=== PATIENT | male | born 1975 | race Caucasian/White ===

== ENCOUNTER 2016-11-23 13:09 | Emergency (ER) | payer SELFPAY ==
[~2016-11-23] VITALS: Ht 180.3 cm; Wt 122.5 kg
[~2016-11-23 13:09] MED LIST: ALPR.5T PO; ALPR2TAB2 PO; AML5T PO; AMLO10TA2 PO; AMLO10TA82 PO; AMLO5TAB2 PO; AMLODIPINE; ATEN-147 PO; ATEN100T PO; ATEN25TA PO; BENA20TA2 PO; BENAZAPRIL; BNZ10T PO; BNZ20T PO; BNZ40T PO; CHLO-159 PO; CHLO4TAB PO; CHLO4TAB36 PO; CHLO500T2 PO; CLC500CT PO; DOXY100C2 PO; FAMO20TA5 PO; GBPN100C PO; GLIP5TAB13 PO; HYDR-3454 PO; HYDR-3583 PO; HYDR-3812 PO; IBP800T PO; IBUP-30 PO; INSU100V SQ; INSU100V6 SQ; LACT1CAP45 PO; METF-380 PO; METOPROLOL; MTP50T PO; MTR500T PO; ONDA8TAB9 PO; OXYC-471 PO; POTA10TA36 PO; PRD10T PO; PRD20T PO; PRED10TA PO; RANI150T15 PO; RANI75TA30 PO; SMV20T PO; TRAM50TA2 PO; TRM50T PO; VANC125C4 PO
--- OUTSIDE RECORDS SUMMARY | 2016-11-23 13:18 | XMS REPORT | Continuity of Care Document ---
Author Author [facility] Organization [facility] Address Unknown Phone Unavailable Care Team Providers Care Referral And Information Aide Name Role Phone PCP Unavailable Source Comments Some departments are not documenting in the electronic medical record. If you do not see the information that you expected, contact Release of Information in the Health Information Management department at [phone] for further assistance in locating additional records.[facility] Active Allergies and Adverse Reactions Allergen Noted Date Severity Reactions Comments Iv Contrast Dye, Iodine 08/01/2016 Medium HIVES Containing Current Medications Prescription Sig. Disp. Refills Start End Date Status Date insulin lispro(+) Inject 23 Units under the Active (HUMALOG KWIKPEN) 100 skin three times daily unit/mL injection PEN with meals. insulin glargine (LANTUS Inject 45 Units under the Active SOLOSTAR) 100 unit/mL (3 skin at bedtime daily. mL) injection PEN benazepril (LOTENSIN) 40 Take 40 mg by mouth Active mg tablet daily. amLODIPine (NORVASC) 10 Take 10 mg by mouth Active mg tablet daily. chlorzoxazone(+) (PARAFON Take 500 mg by mouth Active FORTE) 500 mg tablet three times daily as needed for Muscle Cramps. atenolol (TENORMIN) 100 Take 100 mg by mouth Active mg tablet daily. ondansetron hcl (ZOFRAN) Take 8 mg by mouth every Active 8 mg tablet 8 hours as needed for Nausea or Vomiting. sulfaSALAzine (SULFAZINE 1 tab twice daily for 1 120 Tab 1 08/26/20 Active EC) 500 mg EC tablet week, 2 tabs in the AM 16 and 1 tab in the PM for 1 wk, then 2 tabs twice daily thereafter. Take with food. Active Problems No known active problems Most Recent Encounters Date Type Specialty Providers Description 08/24/2016 Orders Only Allergy,Immunology and El Adame MD Polyarthralgia; Rheumatology Inflammatory arthropathy; Nail dystrophy 08/24/2016 Orders Only Allergy,Immunology and El Adame MD Polyarthralgia; Rheumatology Inflammatory arthropathy; Nail dystrophy Social History Tobacco Use Types Packs/Day Years Used Date Never Smoker Smokeless Tobacco: Never Used Alcohol Use Drinks/Week oz/Week Comments No Last Filed Vital Signs Vital Sign Reading Time Taken Blood Pressure 129/83 08/08/2016 8:19 AM CDT Pulse 78 08/08/2016 8:19 AM CDT Temperature 36.9 C (98.4 F) 08/08/2016 8:19 AM CDT Respiratory Rate 20 08/08/2016 8:19 AM CDT Height 1.803 m (5' 11") 08/08/2016 8:19 AM CDT Weight 127.189 kg (280 lb 6.4 08/08/2016 8:19 AM CDT oz) Body Mass Index 39.13 08/08/2016 8:19 AM CDT Oxygen Saturation - - Plan of Care Health Maintenance Due Date Last Done Comments Physical (Comprehensive) 1981 Exam Pertussis Vaccine 1985 Tetanus Vaccine 1991 Influenza Vaccine 06/16/2016 Results from Last 3 Months Not on file
[2016-11-23] MEDS ORDERED: SULF500T7 PO (13:30)
--- NOTE | 2016-11-23 13:35 | ED General ---
General Chief Complaint: General Problems/Pain Stated Complaint: SWELLING, HIP/KNEE PAIN Nursing Triage Note: PT CO OF JOINT SWELLING AND TENDERNESS, PT CO OF HAND, HIPS AND KNEES BEING SWOLLEN AND PAINFUL. STARTED THIS AM Nursing Sepsis Screen: No Definite Risk Source of Information: Patient Exam Limitations: No Limitations History of Present Illness Time Seen by Provider: 13:35 Initial Comments 41 yo male patient presents to the ED with c/o swelling and pain of the back, hips, knees, shoulders, elbows, and hands. Patient states he has seen a emergency department rn and they think he has RA. Denies fever, chills, sweats, headache , dizziness, n/v/d, chest pain, SOB. Timing/Duration: 4-6 Hours, Getting Worse Modifying Factors: worse with Movement, worse with Other (worse with palpation) Allergies and Home Medications Allergies Coded Allergies: Iodinated Contrast Media - IV Dye (Unverified Allergy, Unknown, 05/12/14) Home Medications Amlodipine Besylate 10 Mg Tablet 10 MG PO HS (Reported) LAST FILLED 12/26/15 #30 Atenolol 100 Mg Tablet 100 MG PO BID (Reported) LAST FILLED 12/24/15 #60 Benazepril HCl 40 Mg Tab 40 MG PO HS (Reported) LAST FILLED 12/24/15 #30 Hydrocodone/Acetaminophen 1 Each Tablet #14 1 EACH PO Q4H PRN PRN PAIN Prescribed by: LISA REINA on 11/23/16 1638 Insulin Glargine,Hum.rec.anlog 100 Unit/1 Ml Vial 45 UNIT SQ DAILY (Reported) LAST FILLED 11/05/15 #1 VIAL Insulin Lispro 100 Unit/1 Ml Vial 23 UNITS SQ TIDWM (Reported) LAST FILLED 11/19/15 #1 VIAL Meloxicam 7.5 Mg Tablet #20 7.5 MG PO BID Prescribed by: LISA REINA on 11/23/16 1626 Ondansetron 8 Mg Tab.rapdis 8 MG PO TID PRN PRN NAUSEA/VOMITING (Reported) Prednisone 20 Mg Tab #5 20 MG PO DAILY Prescribed by: LISA REINA on 11/23/16 1638 Sulfasalazine 500 Mg Tablet 500 MG PO BID (Reported) Constitutional: No chills, No diaphoresis, No dizziness, No fever, No malaise EENTM: no symptoms reported Respiratory: no symptoms reported Cardiovascular: no symptoms reported Gastrointestinal: no symptoms reported Genitourinary: no symptoms reported Musculoskeletal: see HPI Skin: no symptoms reported Psychiatric/Neurological: No Symptoms Reported All Other Systems Reviewed Negative Unless Noted: Yes (Negative excepted noted.) Past Ibgebyu-Vjzpnf-Xnlady Hx Patient Social History Alcohol Use: Denies Use Recreational Drug Use: No Smoking Status: Never a Smoker Former Smoker/When Quit: Oct 16, 1988 Recent Foreign Travel: No Contact w/Someone Who Travel: No Recent Infectious Disease Expo: No Recent Hopitalizations: No Immunizations Up To Date Tetanus Booster (TDap): Unknown Date of Pneumonia Vaccine: Jul 16, 2015 Date of Influenza Vaccine: Jul 16, 2016 Surgeries HX Surgeries: Yes (laminectomy, MRSA CYST REMOVAL) Surgeries: Orthopedic Respiratory Hx Respiratory Disorders: No Cardiovascular Hx Cardiac Disorders: Yes (IMPLANTABLE LOOP RECORDER) Cardiac Disorders: Hypertension, Irregular Heartbeat Neurological Hx Neurological Disorders: No Reproductive System Hx Reproductive Disorders: No Sexually Transmitted Disease: No HIV/AIDS: No Genitourinary Hx Genitourinary Disorders: Yes Genitourinary Disorders: Kidney Stones Gastrointestinal Hx Gastrointestinal Disorders: Yes Gastrointestinal Disorders: Pancreatitis, C-Diff Musculoskeletal Hx Musculoskeletal Disorders: Yes ( right humerus fracture) Musculoskeletal Disorders: Arthritis, Fractures, Gout Endocrine Hx Endocrine Disorders: Yes Endocrine Disorders: Diabetes, Insulin dep HEENT HX ENT Disorders: No Loss of Vision: Denies Hearing Impairment: Denies Cancer Hx Cancer: No Psychosocial Hx Psychiatric Problems: No Integumentary HX Skin/Integumentary Disorder: Yes (hx MRSA OF A WOUND) Blood Transfusions Hx Blood Disorders: No Adverse Reaction to a Blood Tr: No Reviewed Nursing Assessment Reviewed/Agree w Nursing PMH: Yes Family Medical History Significant Family History: Heart Disease, Diabetes, Hypertension Family Medial History: Family history: Diabetes mellitus 19 FATHER Family history: Hypertension 19 FATHER Hypercholesterolemia 19 FATHER Myocardial infarction 19 MOTHER No Family History of: Cancer Cancer of colon Dementia Family history: Alzheimer's disease Family history: Asthma History of - respiratory disease Seizure disorder Stroke Physical Exam Vital Signs Vital Sign - Last 12Hours 11/23/16 13:19 Temp 98.1 Pulse 104 Resp 18 B/P 148/98 Pulse Ox 95 O2 Delivery Room Air Capillary Refill : Less Than 3 Seconds General Appearance: No Apparent Distress WD/WN Respiratory: Lungs Clear Normal Breath Sounds No Respiratory Distress Cardiovascular: Regular Rate, Rhythm No Edema No Murmur Normal Peripheral Pulses Gastrointestinal: Normal Bowel Sounds No Organomegaly Non Tender SoftNo Distended Back: Normal Inspection Decreased Range of Motion Extremity: Normal Capillary Refill No Calf Tenderness No Pedal Edema Swelling (bilateral hands) Other (tenderness palpation of the shoulders, elbows, hands, hips, and knees. Decreased range of motion in all joints.) Neurologic/Psychiatric: Alert Oriented x3 No Motor/Sensory Deficits Normal Mood/Affect correctional lieutenant II-XII Norm as Tested Skin: Normal Color Warm/Dry Progress/Results/Core Measures Results/Orders Lab Results Laboratory Tests Test 11/23/16 14:51 11/23/16 16:19 Range/Units Alanine Aminotransferase (ALT/SGPT) 21 0-55 U/L Albumin 3.8 3.2-4.5 G/DL Alkaline Phosphatase 115 40-136 U/L Anion Gap 11 5-14 MMOL/L Aspartate Amino Transf (AST/SGOT) 14 5-34 U/L BUN/Creatinine Ratio 7 Basophils # (Auto) 0.0 0.0-0.1 10^3/uL Basophils (%) (Auto) 0 0-10 % Blood Urea Nitrogen 10 7-18 MG/DL C-Reactive Protein High Sensitivity 7.09 H 0.00-0.50 MG/DL Calcium Level 8.9 8.5-10.1 MG/DL Carbon Dioxide Level 22 21-32 MMOL/L Chloride Level 103 98-107 MMOL/L Creatinine 1.34 H 0.60-1.30 MG/DL Eosinophils # (Auto) 0.1 0.0-0.3 10^3/uL Eosinophils (%) (Auto) 1 0-10 % Erythrocyte Sedimentation Rate 57 H 0-15 MM/HR Estimat Glomerular Filtration Rate 58 Glucose Level 260 H 70-105 MG/DL Hematocrit 36 L 40-54 % Hemoglobin 12.4 L 13.3-17.7 G/DL Lymphocytes # (Auto) 1.8 1.0-4.0 X 10^3 Lymphocytes (%) (Auto) 17 12-44 % Mean Corpuscular Hemoglobin 30 25-34 PG Mean Corpuscular Hemoglobin Concent 35 32-36 G/DL Mean Corpuscular Volume 86 80-99 FL Mean Platelet Volume 8.5 7.4-10.4 FL Monocytes # (Auto) 1.1 H 0.0-1.0 X 10^3 Monocytes (%) (Auto) 11 0-12 % Neutrophils # (Auto) 7.4 1.8-7.8 X 10^3 Neutrophils (%) (Auto) 72 42-75 % Platelet Count 287 130-400 10^3/uL Potassium Level 3.4 L 3.6-5.0 MMOL/L Red Blood Count 4.12 L 4.35-5.85 10^6/uL Red Cell Distribution Width 12.7 10.0-14.5 % Sodium Level 136 135-145 MMOL/L TSH [place] Testing 1.83 0.35-4.94 UIU/ML Total Bilirubin 0.6 0.1-1.0 MG/DL Total Protein 6.9 6.4-8.2 G/DL White Blood Count 10.3 4.3-11.0 10^3/uL Urine Bacteria NEGATIVE /HPF Urine Bilirubin NEGATIVE NEGATIVE Urine Casts PRESENT /LPF Urine Clarity CLEAR Urine Color YELLOW Urine Crystals NONE /LPF Urine Culture Indicated NO Urine Glucose (UA) 2+ H NEGATIVE Urine Hyaline Casts 5-10 H /LPF Urine Ketones NEGATIVE NEGATIVE Urine Leukocyte Esterase NEGATIVE NEGATIVE Urine Mucus SMALL H /LPF Urine Nitrite NEGATIVE NEGATIVE Urine Protein 2+ H NEGATIVE Urine RBC NONE /HPF Urine RBC (Auto) NEGATIVE NEGATIVE Urine Specific Rheems 1.010 L 1.016-1.022 Urine Squamous Epithelial Cells 0-2 /HPF Urine Urobilinogen NORMAL NORMAL MG/DL Urine WBC 2-5 /HPF Urine pH 6.5 5-9 My Orders Orders-LISA REINA Cbc With Automated Diff (11/23/16 14:06) Comprehensive Metabolic Panel (11/23/16 14:06) Hs C Reactive Protein (11/23/16 14:06) Thyroid Analyzer (11/23/16 14:06) Ua Culture If Indicated (11/23/16 14:06) Erythrocyte Sedimentation Rate (11/23/16 14:06) Saline Lock/Iv-Start (11/23/16 14:06) Ketorolac Injection (Toradol Injection) (11/23/16 14:06) Orphenadrine Injection (Norflex Injectio (11/23/16 14:06) Methylprednisolone Sod Succ (Solu-Medrol (11/23/16 14:06) Morphine Injection (Morphine Injection (11/23/16 15:21) Ns Iv 1000 Ml (Sodium Chloride 0.9%) (11/23/16 15:21) Hydromorphone Injection (Dilaudid Inject (11/23/16 16:36) Medications Given in ED Current Medications Medications Dose Ordered Sig/Obie Route Start Time Stop Time Status Last Admin Dose Admin Sodium Chloride 1,000 ml @ 0 mls/hr Q0M ONCE IV 11/23/16 15:21 11/23/16 15:23 DC 11/23/16 15:38 1,000 MLS/HR Vital Signs/I&O Vital Sign - Last 12Hours 11/23/16 11/23/16 13:19 17:01 Temp 98.1 Pulse 104 84 Resp 18 18 B/P 148/98 Pulse Ox 95 97 O2 Delivery Room Air Blood Pressure Mean: 115 Departure Communication Progress Notes Laboratory findings discussed with the patient. Patient reports feeling better after being given Norflex, Toradol, and morphine. however, pain did return at the end of the visit and was given 1 mg of dilaudid. proceed with [facility] to home with lortab, prednisone, and mobic. patient instructed to follow-up with his emergency department rn as an outpatient. Patient voices understanding and agrees with the treatment plan. Impression Impression: Primary Impression: Rheumatoid arthritis flare Disposition: HOME, SELF-CARE Condition: Improved Departure-Patient Inst. Decision time for Depature: 16:23 Referrals: LEOBARDO VIDALES DO (PCP) Primary Care Physician FILI KUO (Family) Primary Care Physician Patient Instructions: Rheumatoid Arthritis (DC) Add. Discharge Instructions: All discharge instructions reviewed with patient and/or family. Voiced understanding. Medications as instructed. Continue usual home medications. Heating pads or ice packs as needed for pain. Activity as tolerated. Follow- up with your family practitioner or emergency department rn for recheck as an outpatient , call for appointment time. Return to the emergency department for worsened pain, fever, redness, swelling, or any other concerns. Scripts Hydrocodone/Acetaminophen (Hydrocodon-Acetaminoph 7.5-325)1 Each Tablet1 Each PO Q4H PRN PAIN #14 TAB Ref 0 Prov:LISA REINA 11/23/16 Prednisone 20 Mg Tab20 Mg PO DAILY #5 TAB Ref 0 Prov:LISA REINA 11/23/16 Meloxicam (Mobic)7.5 Mg Tablet7.5 Mg PO BID #20 TAB Ref 0 Prov:LISA REINA 11/23/16 Work/School Note: Work Release Form Date Seen in the Emergency Department: Nov 23, 2016 Return to Work: Nov 25, 2016 LISA REINA Nov 23, 2016 13:35
[2016-11-23] MEDS ORDERED: methylPREDNISolone 125 MG (Solu-MEDROL) VIAL IV STA (14:06)
[2016-11-23] MEDS ORDERED: ORPHENADRINE 60 MG/2 ML (NORFLEX) AMP IV STA (14:06)
[2016-11-23] MEDS ORDERED: KETOROLAC 30 MG/ML VIAL IVP STA (14:06)
[2016-11-23 14:58] LABS: BASOPHILS % (AUTO) 0 % (0-10); EOSINOPHILS # (AUTO) 0.1 10^3/uL (0.0-0.3); EOSINOPHILS % (AUTO) 1 % (0-10); LYMPHOCYTES # (AUTO) 1.8 X 10^3 (1.0-4.0); LYMPHOCYTES % (AUTO) 17 % (12-44); MEAN CORPUSCULAR HEMOGLOBIN 30 PG (25-34); MEAN CORPUSCULAR HGB CONC 35 G/DL (32-36); MEAN CORPUSCULAR VOLUME 86 FL (80-99); MEAN PLATELET VOLUME 8.5 FL (7.4-10.4); MONOCYTES # (AUTO) 1.1 X 10^3 (0.0-1.0); MONOCYTES % (AUTO) 11 % (0-12); NEUTROPHILS # (AUTO) 7.4 X 10^3 (1.8-7.8); NEUTROPHILS % (AUTO) 72 % (42-75); PLATELET COUNT 287 10^3/uL (130-400); RED BLOOD COUNT 4.12 10^6/uL (4.35-5.85); RED CELL DISTRIBUTION WIDTH 12.7 % (10.0-14.5); WHITE BLOOD COUNT 10.3 10^3/uL (4.3-11.0)
[2016-11-23 15:16] LABS: ALBUMIN 3.8 G/DL (3.2-4.5); BILIRUBIN,TOTAL 0.6 MG/DL (0.1-1.0); CALCIUM 8.9 MG/DL (8.5-10.1); CREATININE SERUM 1.34 MG/DL (0.60-1.30); POTASSIUM 3.4 MMOL/L (3.6-5.0); TOTAL PROTEIN 6.9 G/DL (6.4-8.2); hs C REACTIVE PROTEIN 7.09 MG/DL (0.00-0.50)
[2016-11-23] MEDS ORDERED: NS IV 1000 ML 1,000 ML IV ONE (15:21)
[2016-11-23] MEDS ORDERED: morphine INJ 10 MG/ML 1ML (SYR OR VIAL) IVP STA (15:21)
[2016-11-23 16:04] LABS: ERYTHROCYTE SEDIMENTATION RATE 57 MM/HR (0-15)
[2016-11-23] MEDS ORDERED: PRD10T PO (16:26)
[2016-11-23] MEDS ORDERED: MELO-170 PO (16:26)
[2016-11-23 16:36] LABS: BILIRUBIN,URINE NEGATIVE (NEGATIVE); KETONES,URINE NEGATIVE (NEGATIVE); LEUKOCYTE ESTERASE ,URINE NEGATIVE (NEGATIVE); NITRITE,URINE NEGATIVE (NEGATIVE); PH,URINE 6.5 (5-9); PROTEIN,URINE 2+ (NEGATIVE); UROBILINOGEN,URINE NORMAL (NORMAL)
[2016-11-23] MEDS ORDERED: HYDROmorphone (DILAUDID) 2 MG/ML VIAL IVP STA (16:36)
[2016-11-23] MEDS ORDERED: HYDR-3816 PO (16:38)
[2016-11-23] MEDS ORDERED: PRD20T PO (16:38)
[2016-11-23 16:58] LABS: SQUAMOUS EPITHELIAL CELL,UR 0-2 /HPF
[2016-11-23 17:01] VITALS: BP 132/88
== END 2016-11-23 17:22 | disposition home or self-care (01) ==
LOC: EDUNIT# 13:09 → ER 13:12
DX: M06.9 Rheumatoid arthritis, unspecified (principal); R22.41 Localized swelling, mass and lump, right lower limb; R22.42 Localized swelling, mass and lump, left lower limb; E11.9 Type 2 diabetes mellitus without complications; Z79.4 Long term (current) use of insulin; Z79.899 Other long term (current) drug therapy
CPT/HCPCS: 36415; 80053; 81000; 84443; 85025; 85652; 86141; 96361; 96374; 96375

== ENCOUNTER 2016-12-15 00:40 | Emergency (ER) | payer SELFPAY ==
[~2016-12-15] VITALS: Ht 180.3 cm; Wt 120.2 kg
[~2016-12-15 00:40] MED LIST changes: +HYDR-3816 PO; +MELO-170 PO; +SULF500T7 PO
--- OUTSIDE RECORDS SUMMARY | 2016-12-15 00:47 | XMS REPORT | Continuity of Care Document ---
Author Author [facility] Organization [facility] Address Unknown Phone Unavailable Care Team Providers Care Travel Freight And Passenger Agent Name Role Phone PCP Unavailable Source Comments Some departments are not documenting in the electronic medical record. If you do not see the information that you expected, contact Release of Information in the Health Information Management department at [phone] for further assistance in locating additional records.[facility] Active Allergies and Adverse Reactions Allergen [...] food. Active Problems No known active problems Social History Tobacco Use Types Packs/Day Years [...]
[2016-12-15] MEDS ORDERED: ORPHENADRINE 60 MG/2 ML (NORFLEX) AMP IV ONE (01:00)
[2016-12-15] MEDS ORDERED: KETOROLAC 30 MG/ML VIAL IV ONE (01:00)
[2016-12-15] MEDS ORDERED: DEXAMETHASONE 4 MG/ML SDV (DECADRON) IV ONE (01:00)
--- NOTE | 2016-12-15 01:02 | ED General ---
General Chief Complaint: General Problems/Pain Stated Complaint: POSS ALLERGIC RXN,JOINT PAIN Nursing Triage Note: RECENTLY DX WITH RA, C/O JOINT PAIN, HAND SWELLING WORSE SINCE 12/13/16 AM. Nursing Sepsis Screen: No Definite Risk Source of Information: Patient Exam Limitations: No Limitations History of Present Illness Time Seen by Provider: 01:00 Initial Comments Patient has a presumptive diagnosis of rheumatoid arthritis following consultation with soakers supervisor at [facility]. He was seen here 3 weeks ago with swelling in his joints. He was treated with prednisone which helped somewhat. His primary care physician started indomethacin but it is not seem to help. Tonight pain and swelling in his hands lower back is severe and he was unable to sleep. In addition he complains of some epigastric discomfort. Allergies and Home Medications Allergies Coded Allergies: Iodinated Contrast Media - IV Dye (Unverified Allergy, Unknown, 05/12/14) Home Medications Amlodipine Besylate 10 Mg Tablet 10 MG PO HS (Reported) LAST FILLED 12/26/15 #30 Atenolol 100 Mg Tablet 100 MG PO BID (Reported) LAST FILLED 12/24/15 #60 Benazepril HCl 40 Mg Tab 40 MG PO HS (Reported) LAST FILLED 12/24/15 #30 Constitutional: no symptoms reportedNo fever Respiratory: no symptoms reported Cardiovascular: no symptoms reported Gastrointestinal: abdominal pain nausea Musculoskeletal: joint pain joint swelling All Other Systems Reviewed Negative Unless Noted: Yes Past Apyqhen-Lbbfjx-Dychma Hx Patient Social History Alcohol Use: Denies Use Recreational Drug Use: No Smoking Status: Never a Smoker Former Smoker/When Quit: Oct 16, 1988 2nd Hand Smoke Exposure: No Recent Foreign Travel: No Contact w/Someone Who Travel: No Recent Infectious Disease Expo: No Recent Hopitalizations: No Immunizations Up To Date Tetanus Booster (TDap): Unknown Date of Pneumonia Vaccine: Jul 16, 2015 Date of Influenza Vaccine: Jul 16, 2016 Seasonal Allergies Seasonal Allergies: No Surgeries HX Surgeries: Yes (laminectomy, MRSA CYST REMOVAL) Surgeries: Orthopedic Respiratory Hx Respiratory Disorders: No Cardiovascular Hx Cardiac Disorders: Yes (IMPLANTABLE LOOP RECORDER) Cardiac Disorders: Hypertension, Irregular Heartbeat Neurological Hx Neurological Disorders: No Reproductive System Hx Reproductive Disorders: No Sexually Transmitted Disease: No HIV/AIDS: No Genitourinary Hx Genitourinary Disorders: Yes Genitourinary Disorders: Kidney Stones Gastrointestinal Hx Gastrointestinal Disorders: Yes Gastrointestinal Disorders: Pancreatitis, C-Diff Musculoskeletal Hx Musculoskeletal Disorders: Yes ( right humerus fracture) Musculoskeletal Disorders: Arthritis, Fractures, Gout Endocrine Hx Endocrine Disorders: Yes Endocrine Disorders: Diabetes, Non-Insulin dep HEENT HX ENT Disorders: No Loss of Vision: Denies Hearing Impairment: Denies Cancer Hx Cancer: No Psychosocial Hx Psychiatric Problems: No Integumentary HX Skin/Integumentary Disorder: Yes (hx MRSA OF A WOUND) Blood Transfusions Hx Blood Disorders: No Adverse Reaction to a Blood Tr: No Reviewed Nursing Assessment Reviewed/Agree w Nursing PMH: Yes Family Medical History Significant Family History: Heart Disease, Diabetes, Hypertension Family Medial History: Family history: Diabetes mellitus 19 FATHER Family history: Hypertension 19 FATHER Hypercholesterolemia 19 FATHER Myocardial infarction 19 MOTHER No Family History of: Cancer Cancer of colon Dementia Family history: Alzheimer's disease Family history: Asthma History of - respiratory disease Seizure disorder Stroke Physical Exam Vital Signs Vital Sign - Last 12Hours 12/15/16 00:55 Temp 99.1 Pulse 96 Resp 18 B/P 183/103 Pulse Ox 96 O2 Delivery Room Air Capillary Refill : Less Than 3 Seconds General Appearance: WD/WN Mild Distress Eyes: Bilateral Eye EOMI, Bilateral Eye PERRL HEENT: PERRL/EOMI Pharynx Normal Neck: Supple Respiratory: Lungs Clear Normal Breath Sounds Cardiovascular: Regular Rate, Rhythm No Edema Gastrointestinal: Non Tender Soft Extremity: Swelling (both hands are swollen, is unable to clench his fist due to swelling) Neurologic/Psychiatric: Alert No Motor/Sensory Deficits Skin: Normal Color Warm/Dry Progress/Results/Core Measures Results/Orders Lab Results Laboratory Tests Test 12/15/16 01:05 Range/Units Alanine Aminotransferase (ALT/SGPT) 28 0-55 U/L Albumin 3.6 3.2-4.5 G/DL Alkaline Phosphatase 114 40-136 U/L Anion Gap 12 5-14 MMOL/L Aspartate Amino Transf (AST/SGOT) 25 5-34 U/L BUN/Creatinine Ratio 10 Basophils # (Auto) 0.0 0.0-0.1 10^3/uL Basophils (%) (Auto) 0 0-10 % Blood Urea Nitrogen 13 7-18 MG/DL C-Reactive Protein High Sensitivity 4.76 H 0.00-0.50 MG/DL Calcium Level 8.5 8.5-10.1 MG/DL Carbon Dioxide Level 20 L 21-32 MMOL/L Chloride Level 104 98-107 MMOL/L Creatinine 1.36 H 0.60-1.30 MG/DL Eosinophils # (Auto) 0.1 0.0-0.3 10^3/uL Eosinophils (%) (Auto) 2 0-10 % Estimat Glomerular Filtration Rate 57 Glucose Level 500 *H 70-105 MG/DL Hematocrit 32 L 40-54 % Hemoglobin 11.2 L 13.3-17.7 G/DL Lymphocytes # (Auto) 1.7 1.0-4.0 X 10^3 Lymphocytes (%) (Auto) 26 12-44 % Mean Corpuscular Hemoglobin 30 25-34 PG Mean Corpuscular Hemoglobin Concent 35 32-36 G/DL Mean Corpuscular Volume 85 80-99 FL Mean Platelet Volume 8.3 7.4-10.4 FL Monocytes # (Auto) 0.8 0.0-1.0 X 10^3 Monocytes (%) (Auto) 12 0-12 % Neutrophils # (Auto) 3.7 1.8-7.8 X 10^3 Neutrophils (%) (Auto) 59 42-75 % Platelet Count 302 130-400 10^3/uL Potassium Level 3.6 3.6-5.0 MMOL/L Red Blood Count 3.75 L 4.35-5.85 10^6/uL Red Cell Distribution Width 13.2 10.0-14.5 % Sodium Level 136 135-145 MMOL/L Total Bilirubin 0.4 0.1-1.0 MG/DL Total Protein 6.2 L 6.4-8.2 G/DL White Blood Count 6.3 4.3-11.0 10^3/uL My Orders Orders-IRVING HOOD MD Cbc With Automated Diff (12/15/16 00:58) Comprehensive Metabolic Panel (12/15/16 00:58) Hs C Reactive Protein (12/15/16 00:58) Ketorolac Injection (Toradol Injection) (12/15/16 01:00) Orphenadrine Injection (Norflex Injectio (12/15/16 01:00) Dexamethasone Injection (Decadron Inject (12/15/16 01:00) Saline Lock/Iv-Start (12/15/16 01:00) Insulin (Regular) Human (Humulin R (Per (12/15/16 01:45) Ns Iv 1000 Ml (Sodium Chloride 0.9%) (12/15/16 01:45) Morphine Injection (Morphine Injection (12/15/16 02:30) Medications Given in ED Current Medications Medications Dose Ordered Sig/Obie Route Start Time Stop Time Status Last Admin Dose Admin Dexamethasone Sodium Phosphate 10 mg ONCE ONCE IV 12/15/16 01:00 12/15/16 01:01 DC 12/15/16 01:08 10 MG Insulin Human Regular 10 unit ONCE ONCE IV 12/15/16 01:45 12/15/16 01:46 DC 12/15/16 01:45 10 UNIT Ketorolac Tromethamine 30 mg ONCE ONCE IV 12/15/16 01:00 12/15/16 01:01 DC 12/15/16 01:08 30 MG Orphenadrine Citrate 60 mg ONCE ONCE IV 12/15/16 01:00 12/15/16 01:01 DC 12/15/16 01:07 60 MG Vital Signs/I&O Vital Sign - Last 12Hours 12/15/16 12/15/16 00:55 01:08 Temp 99.1 99.1 Pulse 96 Resp 18 B/P 183/103 Pulse Ox 96 O2 Delivery Room Air Blood Pressure Mean: 129 Progress Note : Time: 02:27 Progress Note A little better after medications. Morphine given for residual pain. Discussed lab results with patient. Encouraged close follow-up with her soakers supervisor as patient has some sort of inflammatory arthropathy Departure Impression Impression: Primary Impression: Polyarthritis Disposition: HOME, SELF-CARE Condition: Stable Departure-Patient Inst. Decision time for Depature: 02:28 Referrals: NO,LOCAL PHYSICIAN (PCP/Family) Primary Care Physician Patient Instructions: ARTHRALGIA Add. Discharge Instructions: See your doctor this week for follow-up. All discharge instructions reviewed with patient and/or family. Voiced understanding. Scripts Hydrocodone/Acetaminophen (Hydrocodon -Acetaminophen 5-325)1 Each Tablet1-2 Each PO Q4H PRN PAIN #20 TAB Prov:IRVING HOOD MD 12/15/16 Prednisone 20 Mg Tab20 Mg PO BID #10 TAB Prov:IRVING HOOD MD 12/15/16 IRVING HOOD MD Dec 15, 2016 01:02
[2016-12-15 01:18] LABS: BASOPHILS % (AUTO) 0 % (0-10); EOSINOPHILS # (AUTO) 0.1 10^3/uL (0.0-0.3); EOSINOPHILS % (AUTO) 2 % (0-10); LYMPHOCYTES # (AUTO) 1.7 X 10^3 (1.0-4.0); LYMPHOCYTES % (AUTO) 26 % (12-44); MEAN CORPUSCULAR HEMOGLOBIN 30 PG (25-34); MEAN CORPUSCULAR HGB CONC 35 G/DL (32-36); MEAN CORPUSCULAR VOLUME 85 FL (80-99); MEAN PLATELET VOLUME 8.3 FL (7.4-10.4); MONOCYTES # (AUTO) 0.8 X 10^3 (0.0-1.0); MONOCYTES % (AUTO) 12 % (0-12); NEUTROPHILS # (AUTO) 3.7 X 10^3 (1.8-7.8); NEUTROPHILS % (AUTO) 59 % (42-75); PLATELET COUNT 302 10^3/uL (130-400); RED BLOOD COUNT 3.75 10^6/uL (4.35-5.85); RED CELL DISTRIBUTION WIDTH 13.2 % (10.0-14.5); WHITE BLOOD COUNT 6.3 10^3/uL (4.3-11.0)
[2016-12-15 01:37] LABS: ALBUMIN 3.6 G/DL (3.2-4.5); BILIRUBIN,TOTAL 0.4 MG/DL (0.1-1.0); CALCIUM 8.5 MG/DL (8.5-10.1); CREATININE SERUM 1.36 MG/DL (0.60-1.30); POTASSIUM 3.6 MMOL/L (3.6-5.0); TOTAL PROTEIN 6.2 G/DL (6.4-8.2); hs C REACTIVE PROTEIN 4.76 MG/DL (0.00-0.50)
[2016-12-15] MEDS ORDERED: NS IV 1000 ML 1,000 ML IV SCH (01:45)
[2016-12-15] MEDS ORDERED: inSUlin (REGULAR) HUMAN 1 UNIT/0.01 ML (CHARGE PER UNIT) IV ONE (01:45)
[2016-12-15] MEDS ORDERED: PRD20T PO (02:30)
[2016-12-15] MEDS ORDERED: morphine INJ 10 MG/ML 1ML (SYR OR VIAL) IVP ONE (02:30)
[2016-12-15] MEDS ORDERED: HYDR-3812 PO (02:30)
[2016-12-15 03:11] VITALS: BP 165/102
== END 2016-12-15 03:10 | disposition home or self-care (01) ==
LOC: EDUNIT# 00:40 → ER 00:43
DX: M13.0 Polyarthritis, unspecified (principal); Z79.899 Other long term (current) drug therapy
CPT/HCPCS: 36415; 80053; 82962; 85025; 86141; 96361; 96374; 96375

== ENCOUNTER 2017-01-22 21:38 | Emergency (ER) | payer SELFPAY ==
[~2017-01-22] VITALS: Ht 180.3 cm; Wt 120.2 kg
[2017-01-22] MEDS ORDERED: INSU100V6 SQ (22:16)
[2017-01-22] MEDS ORDERED: INSU100V SQ (22:16)
[2017-01-22] MEDS ORDERED: SULF500T7 PO (22:16)
[2017-01-22] MEDS ORDERED: methylPREDNISolone 125 MG (Solu-MEDROL) VIAL IVP ONE (22:30)
[2017-01-22 22:37] LABS: BASOPHILS % (AUTO) 0 % (0-10); EOSINOPHILS % (AUTO) 0 % (0-10); LYMPHOCYTES % (AUTO) 15 % (12-44); MEAN CORPUSCULAR HEMOGLOBIN 29 PG (25-34); MEAN CORPUSCULAR HGB CONC 35 G/DL (32-36); MEAN CORPUSCULAR VOLUME 85 FL (80-99); MEAN PLATELET VOLUME 8.5 FL (7.4-10.4); MONOCYTES # (AUTO) 1.1 X 10^3 (0.0-1.0); MONOCYTES % (AUTO) 8 % (0-12); NEUTROPHILS # (AUTO) 10.2 X 10^3 (1.8-7.8); NEUTROPHILS % (AUTO) 77 % (42-75); PLATELET COUNT 409 10^3/uL (130-400); RED BLOOD COUNT 4.12 10^6/uL (4.35-5.85); RED CELL DISTRIBUTION WIDTH 12.6 % (10.0-14.5); WHITE BLOOD COUNT 13.3 10^3/uL (4.3-11.0)
[2017-01-22 22:54] LABS: ALANINE AMINOTRANSFERASE 17 U/L (0-55); ALBUMIN 3.6 G/DL (3.2-4.5); ANION GAP 15 MMOL/L (5-14); ASPARTATE AMINO TRANSFERASE 17 U/L (5-34); BILIRUBIN,TOTAL 0.6 MG/DL (0.1-1.0); BLOOD UREA NITROGEN 11 MG/DL (7-18); BUN/CREATININE RATIO 9; CALCIUM 8.9 MG/DL (8.5-10.1); CARBON DIOXIDE 22 MMOL/L (21-32); CHLORIDE 104 MMOL/L (98-107); CREATINE KINASE 23 U/L (30-200); CREATININE SERUM 1.29 MG/DL (0.60-1.30); GFR ESTIMATED > 60; GLUCOSE 181 MG/DL (70-105); MAGNESIUM 1.8 MG/DL (1.8-2.4); POTASSIUM 3.1 MMOL/L (3.6-5.0); SALICYLATE < 5.0 MG/DL (5.0-20.0); SODIUM 141 MMOL/L (135-145); hs C REACTIVE PROTEIN 11.69 MG/DL (0.00-0.50)
[2017-01-22 22:55] LABS: ERYTHROCYTE SEDIMENTATION RATE 67 MM/HR (0-15)
[2017-01-22 23:14] LABS: TROPONIN I < 0.30 NG/ML (<0.30)
[2017-01-22] MEDS ORDERED: diphenhydrAMINE 50 MG/ML INJ (BENADRYL) IVP ONE (23:15)
[2017-01-22] MEDS ORDERED: FAMOTIDINE 20MG/2ML IV (PEPCID) IVP ONE (23:15)
[2017-01-22] MEDS ORDERED: NS 100 ML (IVPB) BAG IV ONE (23:30)
[2017-01-22] MEDS ORDERED: IOHEXOL 350 MG/ML 150 ML (OMNIPAQUE 350) VIAL IV ONE (23:30)
--- NOTE | 2017-01-22 23:30 | ED General ---
General Chief Complaint: General Problems/Pain Stated Complaint: LIGHT HEADED ARTHRITIS ISSUES Nursing Triage Note: Ambulatory to ED 5 with reports of arthritic pain, especially in his knees and ankles. Nursing Sepsis Screen: No Definite Risk Source of Information: Patient History of Present Illness Time Seen by Provider: 22:15 Initial Comments PT ARRIVES VIA POV FROM HOME C/O GENERALIZED PAIN--BEGAN YESTERDAY AND IS MUCH WORSE TODAY PT HAS AN NOT-YET DETERMINED TYPE OF INFLAMMATORY ARTHRITIS--POSSIBLY PSORIATIC OR PSEUDOGOUT, PER PT--IS CURRENTLY BEING TREATED BY CHARTER REPRESENTATIVE AT PT STATES HE WAS ON PREDNISONE FOR A YEAR AND DID VERY WILL, BUT IT WAS STOPPED 6-7 MONTHS AGO FOR UNKNOWN REASONS, ACCORDING TO PT. SINCE THEN HE HAS LOST 80 LBS SINCE STOPPING THE PREDNISONE. WAS THEN STARTED ON INDOMETHACIN WITHOUT IMPROVEMENT WAS SWITCHED TO SULFASALAZINE 1 1/2 WEEKS AGO TODAY ALL OF HIS JOINTS HURT AND ARE SWOLLEN, ESPECIALLY HIS LEFT HAND AND HIS RIGHT 3RD MCP JOINT, AND KNEES AND ANKLES AND HEELS OF FEET C/O COUGH AND SHORTNESS OF BREATH WITH ANY ACTIVITY FOR THE LAST COUPLE OF DAYS C/O NAUSEA AND DIZZINESS WITH ANY ACTIVITY WELL HAS HAD SUBJECTIVE FEVER AND SWEATS FOR THE LAST COUPLE OF DAYS HAS HAD SLIGHT CHEST DISCOMFORT ALSO C/O MUCH PAIN AND SWELLING TO RIGHT CALF, WITH CRAMPING AND TIGHTNESS/ SQUEEZING SENSATION TO RIGHT CALF PT STATES HE "CAN'T WALK" DUE TO PAIN BUT AMBULATED INTO ER. STATES HE IS SUPPOSED TO FOLLOW UP WITH CHARTER REPRESENTATIVE AT IN "5 OR 6 WEEKS" BUT DOES NOT HAVE AN APPOINTMENT PCP: BERTIN COREAS IN [place] Allergies and Home Medications Allergies Coded Allergies: Iodinated Contrast Media - Oral and (Unverified Allergy, Unknown, 05/12/14) Home Medications Amlodipine Besylate 10 Mg Tablet, 10 MG PO HS, (Reported) LAST FILLED 12/26/15 #30 Atenolol 100 Mg Tablet, 100 MG PO BID, (Reported) LAST FILLED 12/24/15 #60 Benazepril HCl 40 Mg Tab, 40 MG PO HS, (Reported) LAST FILLED 12/24/15 #30 Hydrocodone/Acetaminophen 1 Each Tablet, 1-2 EACH PO Q4H PRN for PAIN, #20 Prescribed by: IRVING HOOD on 12/15/16 0230 Insulin Glargine,Hum.rec.anlog 100 Unit/1 Ml Vial, Unknown Dose SQ, (Reported) Insulin Lispro 100 Unit/1 Ml Vial, Unknown Dose SQ, (Reported) Prednisone 20 Mg Tab, 20 MG PO BID, #10 Prescribed by: IRVING HOOD on 12/15/16 0230 Sulfasalazine 500 Mg Tablet, Unknown Dose PO, (Reported) Constitutional: see HPI, chills, diaphoresis, dizziness, fever, malaise, weakness EENTM: no symptoms reported Respiratory: see HPI, cough, dyspnea on exertion Cardiovascular: see HPI, chest pain, edema, No palpitations, No syncope, No vascular heart diseas, other (PT HAS HX OF SVT WITH HEART RATE IN 200'S AT TIMES ( SINCE HIS TEENS)--HAS PASSED OUT BEFORE WHEN HIS HEART RATE WAS IN 200' S BUT THIS HAS NOT HAPPENED RECENTLY. -HAS LOOP RECORDER IN PLACE. DOES NOT HAVE SENSATION OF TACHYCARDIA AT THIS TIME, DESPITE HEART RATE BEING IN 120'S. STATTES HIS NORMAL HEART RATE IS IN 80'S . 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 SUBSTANCE ABUSE ) Smoking Status: Former Smoker Former Smoker/When Quit: Oct 16, 1988 2nd Hand Smoke Exposure: No Recent Foreign Travel: No Contact w/Someone Who Travel: No Recent Infectious Disease Expo: No Recent Hopitalizations: No Immunizations Up To Date Tetanus Booster (TDap): Unknown Date of Pneumonia Vaccine: Jul 16, 2015 Date of Influenza Vaccine: Jul 16, 2016 Seasonal Allergies Seasonal Allergies: No Surgeries HX Surgeries: Yes (LAMINECTOMY, MRSA ABSCESS REMOVAL-I&D; LOOP RECORDER; BILATERAL KNEE SCOPES X 5 TOTAL; LEFT THUMB PYOGENIC GRANULOMA REMOVAL; CARDIAC CATH; CYSTOSCOPY) Surgeries: Bladder Surgery (CYSTOSCOPY), Cardiac, Orthopedic Respiratory Hx Respiratory Disorders: No Cardiovascular Hx Cardiac Disorders: Yes (IMPLANTABLE LOOP RECORDER; SVT WITH HEART RATE IN 200'S AND SYNCOPE SINCE HE WAS IN HIS TEENS. ) Cardiac Disorders: Hypertension, Irregular Heartbeat, Syncope Neurological Hx Neurological Disorders: No Reproductive System Hx Reproductive Disorders: No Sexually Transmitted Disease: No HIV/AIDS: No Genitourinary Hx Genitourinary Disorders: Yes Genitourinary Disorders: Kidney Stones Gastrointestinal Hx Gastrointestinal Disorders: Yes (ELEVATED LIVER ENZYMES AND FATTY LIVER DISEASE) Gastrointestinal Disorders: Liver Disease/Jaundice, Pancreatitis, C-Diff Musculoskeletal Hx Musculoskeletal Disorders: Yes (RIGHT HUMERUS FRACTURE; UNDIAGNOSED TYPE OF INFLAMMATORY ARTHRITIS--PSORIATIC VS PSUEDOGOUT VS RA-PER PT, "PALINDROMIC RHEUMATISM" HAS BEEN DX BY ONE CHARTER REPRESENTATIVE, PER OLD RECORDS. ) Musculoskeletal Disorders: Arthritis, Fractures, Gout Endocrine Hx Endocrine Disorders: Yes Endocrine Disorders: Diabetes, Insulin dep HEENT HX ENT Disorders: No Loss of Vision: Denies Hearing Impairment: Denies Cancer Hx Cancer: No Psychosocial Hx Psychiatric Problems: No Integumentary HX Skin/Integumentary Disorder: Yes (hx MRSA OF A WOUND) Blood Transfusions Hx Blood Disorders: No Adverse Reaction to a Blood Tr: No Family Medical History Family Medial History: Family history: Diabetes mellitus 19 FATHER Family history: Hypertension 19 FATHER Hypercholesterolemia 19 FATHER Myocardial infarction 19 MOTHER No Family History of: Cancer Cancer of colon Dementia Family history: Alzheimer's disease Family history: Asthma History of - respiratory disease Seizure disorder Stroke Physical Exam Vital Signs Vital Sign - Last 12Hours 01/22/17 21:55 Temp 98.2 Pulse 120 Resp 18 B/P (MAP) 166/100 Pulse Ox 96 O2 Delivery Room Air Capillary Refill : Less Than 3 Seconds General Appearance: No Apparent Distress, WD/WN, Other (LOOKS MILDLY ILL AND UNCOMFORTABLE) HEENT: PERRL/EOMI Neck: Full Range of Motion, Normal Inspection, Non Tender, Supple Respiratory: Normal Breath Sounds, No Accessory Muscle Use, No Respiratory Distress Cardiovascular: No JVD, No Murmur, Normal Peripheral Pulses, Tachycardia Gastrointestinal: Normal Bowel Sounds, No Organomegaly, No Pulsatile Mass, Non Tender, Soft Back: No CVA Tenderness Extremity: Normal Capillary Refill, Normal Range of Motion, Other (RIGHT CALF SWOLLEN AND VERY TENDER, + ROBBI'S. NO CORDING. MILD CHRONIC VENOUS STASIS CHANGES BILATERALLY TO LOWER LEGS. NO OPEN WOUNDS OR LESIONS. MARKED TENDERNESS TO BILATERAL KNEES AND ANKLES, AND HEELS. SLIGHT SWELLING NOTED TO KNEE JOINTS. HANDS / JOINTS WITH MODERATE SWELLING --LEFT > RIGHT, RIGHT 3RD MCP JOINT WITH MORE SWELLING AND TENDERNESS THAN OTHER JOINTS AND WARMTH AND MILD REDNESS. ) Neurologic/Psychiatric: Alert, Oriented x3, No Motor/Sensory Deficits, wildland fire fighter II- XII Norm as Tested Skin: Normal Color, Warm/Dry, Other ( NOTED ABOVE. SLIGHT PITTING OF SOME NAILS. ) Focused Exam Lactic Acid Level Progress/Results/Core Measures Results/Orders Lab Results Laboratory Tests Test 01/22/17 01:10 01/22/17 22:22 01/22/17 22:37 Range/Units Urine Color YELLOW Urine Clarity CLEAR Urine pH 7 5-9 Urine Specific [place] 1.015 L 1.016-1.022 Urine Protein 2+ H NEGATIVE Urine Glucose (UA) NEGATIVE NEGATIVE Urine Ketones NEGATIVE NEGATIVE Urine Nitrite NEGATIVE NEGATIVE Urine Bilirubin NEGATIVE NEGATIVE Urine Urobilinogen NORMAL NORMAL MG/DL Urine Leukocyte Esterase NEGATIVE NEGATIVE Urine RBC (Auto) NEGATIVE NEGATIVE Urine RBC NONE /HPF Urine WBC NONE /HPF Urine Squamous Epithelial Cells 5-10 /HPF Urine Crystals NONE /LPF Urine Bacteria NEGATIVE /HPF Urine Casts NONE /LPF Urine Mucus NEGATIVE /LPF Urine Culture Indicated NO White Blood Count 13.3 H 4.3-11.0 10^3/uL Red Blood Count 4.12 L 4.35-5.85 10^6/uL Hemoglobin 12.1 L 13.3-17.7 G/DL Hematocrit 35 L 40-54 % Mean Corpuscular Volume 85 80-99 FL Mean Corpuscular Hemoglobin 29 25-34 PG Mean Corpuscular Hemoglobin Concent 35 32-36 G/DL Red Cell Distribution Width 12.6 10.0-14.5 % Platelet Count 409 H 130-400 10^3/uL Mean Platelet Volume 8.5 7.4-10.4 FL Neutrophils (%) (Auto) 77 H 42-75 % Lymphocytes (%) (Auto) 15 12-44 % Monocytes (%) (Auto) 8 0-12 % Eosinophils (%) (Auto) 0 0-10 % Basophils (%) (Auto) 0 0-10 % Neutrophils # (Auto) 10.2 H 1.8-7.8 X 10^3 Lymphocytes # (Auto) 2.0 1.0-4.0 X 10^3 Monocytes # (Auto) 1.1 H 0.0-1.0 X 10^3 Eosinophils # (Auto) 0.0 0.0-0.3 10^3/uL Basophils # (Auto) 0.0 0.0-0.1 10^3/uL Erythrocyte Sedimentation Rate 67 H 0-15 MM/HR Prothrombin Time 13.0 12.2-14.7 SEC INR Comment 1.0 0.8-1.4 Activated Partial Thromboplast Time 30 24-35 SEC Sodium Level 141 135-145 MMOL/L Potassium Level 3.1 L 3.6-5.0 MMOL/L Chloride Level 104 98-107 MMOL/L Carbon Dioxide Level 22 21-32 MMOL/L Anion Gap 15 H 5-14 MMOL/L Blood Urea Nitrogen 11 7-18 MG/DL Creatinine 1.29 0.60-1.30 MG/DL Estimat Glomerular Filtration Rate > 60 BUN/Creatinine Ratio 9 Glucose Level 181 H 70-105 MG/DL Calcium Level 8.9 8.5-10.1 MG/DL Magnesium Level 1.8 1.8-2.4 MG/DL Total Bilirubin 0.6 0.1-1.0 MG/DL Aspartate Amino Transf (AST/SGOT) 17 5-34 U/L Alanine Aminotransferase (ALT/SGPT) 17 0-55 U/L Alkaline Phosphatase 115 40-136 U/L Total Creatine Kinase 23 L 30-200 U/L Creatine Kinase MB 0.3 <6.6 NG/ML Troponin I < 0.30 <0.30 NG/ML C-Reactive Protein High Sensitivity 11.69 H 0.00-0.50 MG/DL B-Type Natriuretic Peptide 18.5 <100.0 PG/ML Total Protein 7.0 6.4-8.2 G/DL Albumin 3.6 3.2-4.5 G/DL TSH C[facility]bert Testing 1.91 0.35-4.94 UIU/ML Salicylates Level < 5.0 L 5.0-20.0 MG/DL Lactic Acid Level 1.29 0.50-2.00 MMOL/L My Orders Orders - KIRT NICHOLE DO Saline Lock/Iv-Start (01/22/17 22:28) Ekg Tracing (01/22/17 22:28) Monitor-Rhythm Ecg Trace Only (01/22/17 22:28) BNP (01/22/17 22:28) Cbc With Automated Diff (01/22/17 22:28) Comprehensive Metabolic Panel (01/22/17 22:28) Creatine Kinase (01/22/17 22:28) Creatine Kinase Mb (01/22/17 22:28) Hs C Reactive Protein (01/22/17 22:28) Erythrocyte Sedimentation Rate (01/22/17 22:28) Lactic Acid Analyzer (01/22/17 22:28) Magnesium (01/22/17 22:28) Protime With Inr (01/22/17 22:28) Partial Thromboplastin Time (01/22/17 22:28) Salicylate (01/22/17 22:28) Thyroid Analyzer (01/22/17 22:28) Troponin I (01/22/17 22:28) Ua Culture If Indicated (01/22/17 22:28) Blood Culture (01/22/17 22:28) Us Venous Lower Ext Rt (01/22/17 22:28) Saline Lock/Iv-Start (01/22/17 22:28) Methylprednisolone Sod Succ (Solu-Medrol (01/22/17 22:30) Chest Pa/Lat (2 View) (01/22/17 22:52) Ct Angio Chest W (01/22/17 23:10) Diphenhydramine Injection (Benadryl Inje (01/22/17 23:15) Famotidine Injection (Pepcid Injection) (01/22/17 23:15) Iohexol Injection (Omnipaque 350 Mg/Ml 1 (01/22/17 23:30) Ns (Ivpb) (Sodium Chloride 0.9% Ivpb Bag (01/22/17 23:30) Fentanyl Injection (Sublimaze Injection (01/23/17 00:49) 1/2 Ns W/Kcl 20 Meq/L (0.45% Sodium Chlo (01/23/17 01:00) Rx-Tramadol Hcl (Rx-Ultram) (01/23/17 01:17) Rx-Tramadol Hcl (Rx-Ultram) (01/23/17 01:19) Medications Given in ED Current Medications Medications Dose Ordered Sig/Obie Route Start Time Stop Time Status Last Admin Dose Admin Diphenhydramine HCl 50 mg ONCE ONCE IVP 01/22/17 23:15 01/22/17 23:16 DC 01/22/17 23:23 50 MG Famotidine 40 mg ONCE ONCE IVP 01/22/17 23:15 01/22/17 23:16 DC 01/22/17 23:23 40 MG Iohexol 125 ml ONCE ONCE IV 01/22/17 23:30 01/22/17 23:50 DC 01/22/17 23:43 125 ML Methylprednisolone Sodium Succinate 125 mg ONCE ONCE IVP 01/22/17 22:30 01/22/17 22:31 DC 01/22/17 22:37 125 MG Sodium Chloride 80 ml ONCE ONCE IV 01/22/17 23:30 01/22/17 23:50 DC 01/22/17 23:43 80 ML Vital Signs/I&O Vital Sign - Last 12Hours 01/22/17 01/23/17 21:55 01:31 Temp 98.2 98.0 Pulse 120 105 Resp 18 13 B/P (MAP) 166/100 Pulse Ox 96 95 O2 Delivery Room Air Blood Pressure Mean: 122 Progress Note : Progress Note NO IMPROVEMENT IN PAIN WITH SOLU-MEDROL GIVEN FENTANYL WITH MINIMAL IMPROVEMENT, PER PT, BUT PT ABLE TO AMBULATE OUT OF ER ON HIS OWN WITHOUT DIFFICULTY HEART RATE AND BP DOWN AT TIME OF DISMISSAL. ON REVIEW OF OLD CHART, PT HAS BEEN HERE MULTIPLE TIMES WITH THIS COMPLAINT. PT' S STORY TODAY IS NOT EXACTLY CONSISTENT WITH OLD RECORDS PT WAS HERE 11/23/16 WITH THIS SAME COMPLAINT. WAS GIVEN TORADOL, NORFLEX, SOLU- MEDROL, MORPHINE AND DILAUDID IN ER, AND SENT HOME WITH RX FOR HYDROCODONE #14, PREDNISONE #5 AND MOBIC #20 PT WAS ALSO HERE 12/15/16 WITH SAME COMPLAINT AND WAS GIVEN TORADOL AND MORPHINE IN ER AND SENT HOME WITH RX'S FOR HYDROCODONE #20 AND PREDNISONE 20 MG #10 ON REVIEW OF OLD RECORDS, PT HAS HISTORY OF SUBSTANCE ABUSE DISORDER, AND PT HAD BEEN ON CHRONIC PAIN MEDS FROM [facility] AND DID NOT COMPLY WITH PAIN CONTRACT--RECEIVING MULTIPLE RX'S FOR NARCOTIC PAIN MEDICATIONS AND STEROIDS FROM MULTIPLE PROVIDERS IN BOTH [place] AND [place]. HE ALSO DID NOT COMPLY WITH FOLLOW UP APPOINTMENTS. IT WAS ADVISED BY [facility] PHYSICIANS THAT HE NOT RECEIVE ANY NARCOTICS FROM [facility] PROVIDERS ANY LONGER. IT HAD BEEN RECOMMENDED THAT HE RECEIVE ADDICTION TREATMENT OR COUNSELING, BUT HE DID NOT COMPLY PER THOSE RECORDS, PT HAD BEEN ON STEROIDS FOR MANY YEARS, AND HAD BEEN EVALUATED BY CHARTER REPRESENTATIVE IN [place] AND NOT DX WITH R.A. BUT "PALINDROMIC RHEUMATISM".AND SENIOR CARE STEROIDS IS STRONGLY DISCOURAGED. PT HAS ALSO BEEN TO SUNIL TOBIAS PT ALSO HAS NOT BEEN COMPLIANT WITH FOLLOW UP APPOINTMENTS WITH ORIENTAL RUG STRETCHER, REGARDING HIS LOOP RECORDER HAS ALSO BEEN NON-COMPLIANT WITH OTHER REGULAR MEDICATIONS, ACCORDING TO OLD RECORDS. SEE OLD ADMISSION RECORDS FOR DETAILS. ECG Initial ECG Impression Time: 22:32 Initial ECG Rhythm: S.Tach Initial ECG Comparisson: Unchanged Diagnostic Imaging Comments CXR--NO ACUTE PROCESS, PENDING RADIOLOGIST REVIEW VENOUS DOPPLER/ULTRASOUND RIGHT LEG--NO DVT OR ACUTE PROCESS, PER [facility] VIA FAX @ [phone] CT CHEST ANGIO--NO ACUTE PROCESS, THORACIC COMPRESSION FRACTURES, NO P.E. --PER [facility] VIA FAX @ [phone] Reviewed: Reviewed by Me Departure Impression Impression: Primary Impression: CHRONIC POLYARTHRALGIA Additional Impressions: Undifferentiated inflammatory arthritis Chronic tachycardia Chronic hypertension HX OF NON-COMPLIANCE IN ALL ASPECTS OF CARE Disposition: 01 HOME, SELF-CARE Condition: Stable Departure-Patient Inst. Referrals: NO,LOCAL PHYSICIAN (PCP/Family) Primary Care Physician Patient Instructions: CHRONIC PAIN Add. Discharge Instructions: TAKE YOUR MEDICATIONS PRESCRIBED FOLLOW UP WITH YOUR DR TOMORROW FOR FURTHER CARE All discharge instructions reviewed with patient and/or family. Voiced understanding. KIRT NICHOLE DO Jan 22, 2017 23:30
[2017-01-23] MEDS ORDERED: fentaNYL INJECTION 100 MCG/2 ML AMP IVP STA (00:49)
[2017-01-23] MEDS ORDERED: 1/2 NS W/KCL 20 MEQ/L 1,000 ML IV SCH (01:00)
[2017-01-23] MEDS ORDERED: RX-TRAMADOL 50 MG (ULTRAM) TAB PPK#4 PO STA (01:17)
[2017-01-23] MEDS ORDERED: RX-TRAMADOL 50 MG (ULTRAM) TAB PPK#4 PO ONE (01:19)
[2017-01-23 01:31] VITALS: BP 153/98
[2017-01-23 01:44] LABS: BILIRUBIN,URINE NEGATIVE (NEGATIVE); KETONES,URINE NEGATIVE (NEGATIVE); LEUKOCYTE ESTERASE ,URINE NEGATIVE (NEGATIVE); NITRITE,URINE NEGATIVE (NEGATIVE); PH,URINE 7 (5-9); PROTEIN,URINE 2+ (NEGATIVE); UROBILINOGEN,URINE NORMAL (NORMAL)
--- NOTE | 2017-01-23 07:10 | Diagnostic Imaging Report ---
INDICATION: Fever FINDINGS: The lungs are clear. The heart and vessels normal. There is no effusion or pneumothorax. IMPRESSION: No pneumonia, atelectasis or acute abnormalities Dictated by: Dictated on workstation # [id number]
--- NOTE | 2017-01-23 07:14 | Diagnostic Imaging Report ---
PROCEDURE: CT angiography of the chest with contrast. TECHNIQUE: Multiple contiguous axial images were obtained through the chest after uneventful bolus administration of intravenous contrast. Reconstructed CTA MIP acquisitions were also performed. INDICATION: Shortness of air, cough. FINDINGS: Thoracic aorta is patent and nonaneurysmal. No dissection, mural hemorrhage or rupture. There is no intraluminal pulmonary arterial filling defect identified. No visualized PE. There is no pleural or pericardial effusion. There is trace atelectasis in the lingular segment of the left upper lobe. No findings felt suggestive of pneumonia. No effusion or pneumothorax. Anterior osteophytosis and multilevel spondylosis present with bridging syndesmophytes throughout the mid to lower thoracic spine extending into the upper lumbar levels. Some wedge deformities of the lower thoracic vertebral bodies without paravertebral hemorrhage and these appeared most likely chronic. The visualized upper abdomen showed no acute finding. IMPRESSION: Negative for acute aortic disease or demonstrated PE. Trace atelectasis. Lungs otherwise negative. No mass or adenopathy. Chronic spondylosis and old appearing lower thoracic compression wedge deformities. No acute pathology. Dictated by: Dictated on workstation # [id number]
--- NOTE | 2017-01-23 07:20 | Diagnostic Imaging Report ---
PROCEDURE: US right lower extremity venous. TECHNIQUE: Multiple real-time grayscale images were obtained over the right lower extremity in various projections. Additional duplex Doppler and color Doppler images were also obtained. INDICATION: Pain FINDINGS: The femoral popliteal deep venous system showed normal color flow, normal compressibility and normal waveforms. IMPRESSION: Negative for right lower extremity venous thrombus. Dictated by: Dictated on workstation # [id number]
== END 2017-01-23 01:30 | disposition home or self-care (01) ==
LOC: EDUNIT# 21:38 → ER 21:40
DX: M13.0 Polyarthritis, unspecified (principal); R00.0 Tachycardia, unspecified; I10 Essential (primary) hypertension; M47.814 Spondylosis without myelopathy or radiculopathy, thoracic region; Z79.899 Other long term (current) drug therapy; Z91.19 Patient's noncompliance with other medical treatment and regimen
CPT/HCPCS: 36415; 71020; 71275; 80053; 80329; 81000; 82550; 82553; 83605; 83735; 83880; 84443; 84484; 85025; 85610; 85652; 85730; 86141; 87040; 93005; 93041; 96361; 96374; 96375

== ENCOUNTER 2017-04-20 16:28 | Emergency (ER) | payer SELFPAY ==
[~2017-04-20] VITALS: Ht 180.3 cm; Wt 120.2 kg
[2017-04-20] MEDS ORDERED: IBUP-1780 PO (16:58)
[2017-04-20] MEDS ORDERED: ONDANSETRON 4 MG/2 ML (SDV) Z0FRAN IVP ONE (17:30)
[2017-04-20] MEDS ORDERED: fentaNYL INJECTION 100 MCG/2 ML AMP IVP ONE (17:30)
[2017-04-20 17:36] LABS: BASOPHILS % (AUTO) 0 % (0-10); EOSINOPHILS # (AUTO) 0.3 10^3/uL (0.0-0.3); EOSINOPHILS % (AUTO) 4 % (0-10); LYMPHOCYTES # (AUTO) 2.2 X 10^3 (1.0-4.0); LYMPHOCYTES % (AUTO) 25 % (12-44); MEAN CORPUSCULAR HEMOGLOBIN 29 PG (25-34); MEAN CORPUSCULAR HGB CONC 36 G/DL (32-36); MEAN CORPUSCULAR VOLUME 82 FL (80-99); MEAN PLATELET VOLUME 8.9 FL (7.4-10.4); MONOCYTES # (AUTO) 0.9 X 10^3 (0.0-1.0); MONOCYTES % (AUTO) 10 % (0-12); NEUTROPHILS # (AUTO) 5.4 X 10^3 (1.8-7.8); NEUTROPHILS % (AUTO) 61 % (42-75); PLATELET COUNT 356 10^3/uL (130-400); RED BLOOD COUNT 4.28 10^6/uL (4.35-5.85); RED CELL DISTRIBUTION WIDTH 12.8 % (10.0-14.5); WHITE BLOOD COUNT 8.9 10^3/uL (4.3-11.0)
[2017-04-20 17:49] LABS: BILIRUBIN,URINE NEGATIVE (NEGATIVE); KETONES,URINE NEGATIVE (NEGATIVE); LEUKOCYTE ESTERASE ,URINE NEGATIVE (NEGATIVE); NITRITE,URINE NEGATIVE (NEGATIVE); PH,URINE 6 (5-9); PROTEIN,URINE 2+ (NEGATIVE); UROBILINOGEN,URINE NORMAL (NORMAL)
[2017-04-20 17:50] LABS: ALBUMIN 3.9 GM/DL (3.2-4.5); BILIRUBIN,TOTAL 0.6 MG/DL (0.1-1.0); CALCIUM 8.8 MG/DL (8.5-10.1); CREATININE SERUM 1.56 MG/DL (0.60-1.30); POTASSIUM 2.9 MMOL/L (3.6-5.0); TOTAL PROTEIN 6.9 GM/DL (6.4-8.2); hs C REACTIVE PROTEIN 3.38 MG/DL (0.00-0.50)
--- NOTE | 2017-04-20 17:54 | ED General ---
General Chief Complaint: Abdominal/GI Problems Stated Complaint: STOMACH PAIN/SWELLING OF HANDS Nursing Triage Note: Ambulatory to ED 10 with reports of nausea and vomiting with diffuse abdominal pain since 0200 this morning. Denies diarrhea or constipation. Nursing Sepsis Screen: No Definite Risk Source of Information: Patient Exam Limitations: No Limitations (BALAJI EVANS MD) History of Present Illness Time Seen by Provider: 17:17 Initial Comments This 41-year-old gentleman presents to the emergency room with edema in the face , knees and hands. He has significant right upper quadrant pain as well that started last night. He has diffuse joint pain. He has experienced joint pain and swelling previously with rheumatoid arthritis flares but the abdominal pain is a new experience. He tried to drink some Gatorade this morning but began vomiting. He has had nothing orally since then. He takes sulfasalazine for maintenance therapy for his rheumatoid arthritis. (BALAJI EVANS MD) Allergies and Home Medications Allergies Coded Allergies: Iodinated Contrast Media - Oral and (Unverified Allergy, Unknown, 05/12/14) Home Medications Amlodipine Besylate 10 Mg Tablet, 10 MG PO HS, (Reported) LAST FILLED 12/26/15 #30 Atenolol 100 Mg Tablet, 100 MG PO BID, (Reported) LAST FILLED 12/24/15 #60 Benazepril HCl 40 Mg Tab, 40 MG PO HS, (Reported) LAST FILLED 12/24/15 #30 Ibuprofen 800 Mg Tablet, 800 MG PO Q8H PRN for PAIN, (Reported) Insulin Glargine,Hum.rec.anlog 100 Unit/1 Ml Vial, Unknown Dose SQ, (Reported) Insulin Lispro 100 Unit/1 Ml Vial, Unknown Dose SQ, (Reported) Sulfasalazine 500 Mg Tablet, Unknown Dose PO, (Reported) Constitutional: see HPI EENTM: see HPI Respiratory: no symptoms reported Cardiovascular: no symptoms reported Gastrointestinal: see HPI Genitourinary: no symptoms reported Musculoskeletal: see HPI Skin: no symptoms reported Psychiatric/Neurological: No Symptoms Reported Hematologic/Lymphatic: No Symptoms Reported Immunological/Allergic: see HPI (BALAJI EVANS MD) Past Cuzquig-Ruypuy-Txesmo Hx Patient Social History Alcohol Use: Denies Use Recreational Drug Use: No Smoking Status: Never a Smoker Former Smoker/When Quit: Oct 16, 1988 2nd Hand Smoke Exposure: No Recent Foreign Travel: No Contact w/Someone Who Travel: No Recent Infectious Disease Expo: No Recent Hopitalizations: No (BALAJI EVANS MD) Immunizations Up To Date Tetanus Booster (TDap): Unknown Date of Pneumonia Vaccine: Jul 16, 2015 Date of Influenza Vaccine: Jul 16, 2016 (BALAJI EVANS MD) Seasonal Allergies Seasonal Allergies: No (BALAJI EVANS MD) Surgeries HX Surgeries: Yes Surgeries: Bladder Surgery, Cardiac, Orthopedic (BALAJI EVANS MD) Respiratory Hx Respiratory Disorders: No (BALAJI EVANS MD) Cardiovascular Hx Cardiac Disorders: Yes Cardiac Disorders: Hypertension, Irregular Heartbeat, Syncope (BALAJI EVANS MD) Neurological Hx Neurological Disorders: No (BALAJI EVANS MD) Reproductive System Hx Reproductive Disorders: No Sexually Transmitted Disease: No HIV/AIDS: No (BALAJI EVANS MD) Genitourinary Hx Genitourinary Disorders: Yes Genitourinary Disorders: Kidney Stones (BALAJI EVANS MD) Gastrointestinal Hx Gastrointestinal Disorders: Yes (ELEVATED LIVER ENZYMES AND FATTY LIVER DISEASE) Gastrointestinal Disorders: Liver Disease/Jaundice, Pancreatitis, C-Diff (BALAJI EVANS MD) Musculoskeletal Hx Musculoskeletal Disorders: Yes Musculoskeletal Disorders: Arthritis, Fractures, Gout (BALAJI EVANS MD) Endocrine Hx Endocrine Disorders: Yes Endocrine Disorders: Diabetes, Insulin dep (BALAJI EVANS MD) HEENT HX ENT Disorders: No Loss of Vision: Denies Hearing Impairment: Denies (BALAJI EVANS MD) Cancer Hx Cancer: No (BALAJI EVANS MD) Psychosocial Hx Psychiatric Problems: No (BALAJI EVANS MD) Integumentary HX Skin/Integumentary Disorder: Yes (hx MRSA OF A WOUND) (BALAJI EVANS MD) Blood Transfusions Hx Blood Disorders: No Adverse Reaction to a Blood Tr: No (BALAJI EVANS MD) Family Medical History Family Medial History: Family history: Diabetes mellitus 19 FATHER Family history: Hypertension 19 FATHER Hypercholesterolemia 19 FATHER Myocardial infarction 19 MOTHER No Family History of: Cancer Cancer of colon Dementia Family history: Alzheimer's disease Family history: Asthma History of - respiratory disease Seizure disorder Stroke (BALAJI EVANS MD) Family Medial History: Family history: Diabetes mellitus 19 FATHER Family history: Hypertension 19 FATHER Hypercholesterolemia 19 FATHER Myocardial infarction 19 MOTHER No Family History of: Cancer Cancer of colon Dementia Family history: Alzheimer's disease Family history: Asthma History of - respiratory disease Seizure disorder Stroke (HERB KNOWLES) Physical Exam Vital Signs Vital Sign - Last 12Hours 04/20/17 16:55 Temp 98.2 Pulse 86 Resp 16 B/P (MAP) 162/98 Pulse Ox 98 O2 Delivery Room Air (HERB KNOWLES) Vital Signs Capillary Refill : Less Than 3 Seconds (BALAJI EVANS MD) General Appearance: WD/WN, Mild Distress HEENT: PERRL/EOMI, Pharynx Normal, Other (edema of the face especially periorbital) Neck: Normal Inspection Respiratory: Lungs Clear, Normal Breath Sounds, No Accessory Muscle Use, No Respiratory Distress Cardiovascular: Regular Rate, Rhythm, No Murmur, Other (anasarca) Gastrointestinal: Normal Bowel Sounds, Soft, Tenderness (mild diffuse tenderness with more intense tenderness in the right upper quadrant with positive Borges sign) Extremity: Other (swelling throughout the extremities with tenderness in the joints of the fingers. Knees are boggy with tenderness bilaterally) Neurologic/Psychiatric: Alert, Oriented x3, No Motor/Sensory Deficits, Normal Mood/Affect, garage door opener installer II-XII Norm as Tested Skin: Normal Color, Warm/Dry (BALAJI EVANS MD) Progress/Results/Core Measures Results/Orders Lab Results Laboratory Tests Test 04/20/17 16:55 04/20/17 17:00 Range/Units Urine Color YELLOW Urine Clarity CLEAR Urine pH 6 5-9 Urine Specific Dalton 1.020 1.016-1.022 Urine Protein 2+ H NEGATIVE Urine Glucose (UA) NEGATIVE NEGATIVE Urine Ketones NEGATIVE NEGATIVE Urine Nitrite NEGATIVE NEGATIVE Urine Bilirubin NEGATIVE NEGATIVE Urine Urobilinogen NORMAL NORMAL MG/DL Urine Leukocyte Esterase NEGATIVE NEGATIVE Urine RBC (Auto) NEGATIVE NEGATIVE Urine RBC NONE /HPF Urine WBC 2-5 /HPF Urine Crystals NONE /LPF Urine Bacteria NEGATIVE /HPF Urine Casts PRESENT /LPF Urine Hyaline Casts 2-5 H /LPF Urine Mucus MODERATE H /LPF Urine Culture Indicated NO White Blood Count 8.9 4.3-11.0 10^3/uL Red Blood Count 4.28 L 4.35-5.85 10^6/uL Hemoglobin 12.6 L 13.3-17.7 G/DL Hematocrit 35 L 40-54 % Mean Corpuscular Volume 82 80-99 FL Mean Corpuscular Hemoglobin 29 25-34 PG Mean Corpuscular Hemoglobin Concent 36 32-36 G/DL Red Cell Distribution Width 12.8 10.0-14.5 % Platelet Count 356 130-400 10^3/uL Mean Platelet Volume 8.9 7.4-10.4 FL Neutrophils (%) (Auto) 61 42-75 % Lymphocytes (%) (Auto) 25 12-44 % Monocytes (%) (Auto) 10 0-12 % Eosinophils (%) (Auto) 4 0-10 % Basophils (%) (Auto) 0 0-10 % Neutrophils # (Auto) 5.4 1.8-7.8 X 10^3 Lymphocytes # (Auto) 2.2 1.0-4.0 X 10^3 Monocytes # (Auto) 0.9 0.0-1.0 X 10^3 Eosinophils # (Auto) 0.3 0.0-0.3 10^3/uL Basophils # (Auto) 0.0 0.0-0.1 10^3/uL Erythrocyte Sedimentation Rate 35 H 0-15 MM/HR Sodium Level 142 135-145 MMOL/L Potassium Level 2.9 L 3.6-5.0 MMOL/L Chloride Level 104 98-107 MMOL/L Carbon Dioxide Level 25 21-32 MMOL/L Anion Gap 13 5-14 MMOL/L Blood Urea Nitrogen 14 7-18 MG/DL Creatinine 1.56 H 0.60-1.30 MG/DL Estimat Glomerular Filtration Rate 49 BUN/Creatinine Ratio 9 Glucose Level 161 H 70-105 MG/DL Calcium Level 8.8 8.5-10.1 MG/DL Total Bilirubin 0.6 0.1-1.0 MG/DL Aspartate Amino Transf (AST/SGOT) 25 5-34 U/L Alanine Aminotransferase (ALT/SGPT) 28 0-55 U/L Alkaline Phosphatase 94 40-136 U/L C-Reactive Protein High Sensitivity 3.38 H 0.00-0.50 MG/DL Total Protein 6.9 6.4-8.2 GM/DL Albumin 3.9 3.2-4.5 GM/DL (HERB KNOWLES) My Orders Orders - HERB KNOWLES Prednisone Tablet (Deltasone Tablet) (04/20/17 19:15) Potassium Chloride (Tablet) (K Dur Table (04/20/17 19:15) Ketorolac Injection (Toradol Injection) (04/20/17 19:15) Ketorolac Injection (Toradol Injection) (04/20/17 19:12) (HERB KNOWLES) Medications Given in ED Current Medications Medications Dose Ordered Sig/Obie Route Start Time Stop Time Status Last Admin Dose Admin Fentanyl Citrate 75 mcg ONCE ONCE IVP 04/20/17 17:30 04/20/17 17:31 DC 04/20/17 17:39 75 MCG Ketorolac Tromethamine 30 mg STK-MED ONCE .ROUTE 04/20/17 19:12 04/20/17 19:18 DC 04/20/17 19:20 15 MG Ondansetron HCl 8 mg ONCE ONCE IVP 04/20/17 17:30 04/20/17 17:31 DC 04/20/17 17:39 8 MG Potassium Chloride 40 meq ONCE ONCE PO 04/20/17 19:15 04/20/17 19:16 DC 04/20/17 19:21 40 MEQ Prednisone 60 mg ONCE ONCE PO 04/20/17 19:15 04/20/17 19:16 DC 04/20/17 19:20 60 MG (HERB KNOWLES) Vital Signs/I&O Vital Sign - Last 12Hours 04/20/17 04/20/17 04/20/17 04/20/17 16:55 17:39 19:20 19:20 Temp 98.2 98.2 98.2 98.2 Pulse 86 Resp 16 B/P (MAP) 162/98 Pulse Ox 98 O2 Delivery Room Air (HERB KNOWLES) Blood Pressure Mean: 119 Progress Note #1: Time: 18:11 Progress Note Discussed the Case with Dr Beaulieu and the Patient in the room./ We will obtain US RUQ Abd due to N/V and RUQ pain. His pain is marginally better controlled with Fentanyl but he dropped sats with Fentanyl 75mcg so a CXR was added to W/U. His Potassium could probably be replaced orally prior to leaving if US ok. Outpt he can control with diet. Will hold him NPO until after the US. Progress Note #2: Time: 19:11 Progress Note ultrasound looks unremarkable. He may need further workup by his PCP. At this time I would go ahead and give him Toradol to control his pain 15 mg. Would start him on some steroids and let him go home to follow-up with his PCP. we'll give 40 mEq potassium by mouth 1. (HERB KNOWLES) Diagnostic Imaging Diagonstic Imaging: Xray Plain Films/CT/US/NM/MRI: chest Comments mild cardiomegaly otherwise no acute cardiopulmonary process. [facility] [place] [place] NAME: CARRINGTON ROACH [facility] REC#: [id number] PT STATUS: REG ER : 1975 PHYSICIAN: BALAJI EVANS MD ADMIT DATE: 04/20/17/ER Draft Date of Exam:04/20/17 CHEST 1 VIEW, AP/PA ONLY INDICATION: Chest pain, shortness of breath, stomach pains. EXAMINATION: Chest dated 04/20/2017. COMPARISON: Comparison is made to a chest dated 01/22/2017. FINDINGS: There is a metallic device overlying the left chest. The heart itself is slightly prominent but could be due to portable technique. The pulmonary vasculature is unremarkable. No infiltrates or effusions are seen and there is no pneumothorax. IMPRESSION: 1. Prominence of the heart with the remaining chest unremarkable in appearance. Dictated on workstation # [id number] Dict: 04/20/17 1815 Trans: 04/20/17 1818 [id number] Interpreted by: JOSEF PISANO MD Electronically signed by: Reviewed: Reviewed by Me Diagonstic Imaging: Ultrasound Plain Films/CT/US/NM/MRI: abdomen (ruq) Comments NAME: TITUS ROACHELBA Tafoya [facility] REC#: [id number] PHYSICIAN: BALAJI EVANS MD CC: BALAJI EVANS MD; CHE PHILLIP MD Page 1 of 1 RAD[facility]OLOGY REPORT [facility] [place] CC: BALAJI EVANS MD; CHE PHILLIP MD Page 1 of 1 RADIOLOGY REPORT NAME: CARRINGTON ROACH [facility] REC#: [id number] PT STATUS: REG ER : 1975 PHYSICIAN: BALAJI EVANS MD ADMIT DATE: 04/20/17/ER Signed Date of Exam: 04/20/17 US GALLBLADDER [id number] PROCEDURE: US Gallbladder. TECHNIQUE: Multiple real-time grayscale images were obtained over the right upper quadrant in various projections. INDICATION: Abdominal pain with nausea and emesis FINDINGS: Grayscale imaging of the gallbladder reveals no intraluminal filling defect. There is no gallbladder wall thickening or pericholecystic fluid. No intra or extrahepatic biliary ductal dilatation is identified. Pancreas is largely obscured. IMPRESSION: Unremarkable gallbladder ultrasound. Dictated by: Dictated on workstation # [id number] Dict: 04/20/171835 Trans: 04/20/171836 Interpreted by: CHE PHILLIP MD Electronically signed by: CHE PHILLIP MD 04/20/171836 Reviewed: Reviewed by Me (HERB KNOWLES) Transfer of Care Transfer of Care Time: 18:10 Care transferred to: Herb Knowles MD (HERB KNOWLES) Departure Impression Impression: Primary Impression: Rheumatoid arthritis flare Additional Impressions: Abdominal pain Qualified Codes: R10.11 - Right upper quadrant pain Nausea and vomiting Qualified Codes: R11.2 - Nausea with vomiting, unspecified Disposition: 01 HOME, SELF-CARE Condition: Improved Departure-Patient Inst. Decision time for Depature: 19:42 (HERB KNOWLES) Referrals: JONI DENTON MD (PCP/Family) Primary Care Physician Patient Instructions: Rheumatoid Arthritis (DC) Add. Discharge Instructions: You've been given Toradol and will be started on a steroid taper. I suggested follow-up with your PCP within the next week or 2 so you can get this under better control with some preventative-type medicines. You should use Tylenol up to 3 g daily for breakthrough pain. if he started having nausea or vomiting you will not seize or other worrisome new symptoms then you should return to the ER immediately especially fever or chills. if the Tylenol and ibuprofen are not working he can use heat or icy hot or Capsacin oil. If this doesn't work then you can use hydrocodone be aware hydrocodone will make you drowsy and can cause constipation so you should use a laxative or fiber in your diet to combat this. All discharge instructions reviewed with patient and/or family. Voiced understanding. Scripts Hydrocodone/Acetaminophen (Hydrocodon -Acetaminophen 5-325) 1 Each Tablet 1 EACH PO Q6H Y for PAIN, #20 TAB 0 Refills Prov: HERB KNOWLES 04/20/17 Prednisone (Prednisone) 20 Mg Tab 40 MG PO BID for 14 Days, #42 TAB 0 Refills Take 2 tabs (40mg) twice daily for 7 days then 1 tablet (20mg) twice daily for 1 week. Prov: HERB KNOWLES 04/20/17 Copy Copies To 1: JONI DENTON MD, JOSHUA T MD Apr 20, 2017 17:54 HERB KNOWLES Apr 20, 2017 18:13
[2017-04-20 17:57] LABS: ERYTHROCYTE SEDIMENTATION RATE 35 MM/HR (0-15)
--- NOTE | 2017-04-20 18:19 | Diagnostic Imaging Report ---
INDICATION: Chest pain, shortness of breath, stomach pains. EXAMINATION: Chest dated 04/20/2017. COMPARISON: Comparison is made to a chest dated 01/22/2017. FINDINGS: There is a metallic device overlying the left chest. The heart itself is slightly prominent but could be due to portable technique. The pulmonary vasculature is unremarkable. No infiltrates or effusions are seen and there is no pneumothorax. IMPRESSION: 1. Prominence of the heart with the remaining chest unremarkable in appearance. Dictated by: Dictated on workstation # [id number]
--- NOTE | 2017-04-20 18:40 | Diagnostic Imaging Report ---
PROCEDURE: US Gallbladder. TECHNIQUE: Multiple real-time grayscale images were obtained over the right upper quadrant in various projections. INDICATION: Abdominal pain with nausea and emesis FINDINGS: Grayscale imaging of the gallbladder reveals no intraluminal filling defect. There is no gallbladder wall thickening or pericholecystic fluid. No intra or extrahepatic biliary ductal dilatation is identified. Pancreas is largely obscured. IMPRESSION: Unremarkable gallbladder ultrasound. Dictated by: Dictated on workstation # [id number]
[2017-04-20] MEDS ORDERED: KETOROLAC 30 MG/ML VIAL ONE (19:12)
[2017-04-20] MEDS ORDERED: predniSONE 20 MG TAB PO ONE (19:15)
[2017-04-20] MEDS ORDERED: KCL 20 MEQ TAB (K-DUR) PO ONE (19:15)
[2017-04-20] MEDS ORDERED: KETOROLAC 15 MG/ML VIAL IVP ONE (19:15)
[2017-04-20] MEDS ORDERED: PRD20T PO (19:45)
[2017-04-20] MEDS ORDERED: HYDR-3812 PO (19:45)
[2017-04-20 19:48] VITALS: BP 154/92
--- OUTSIDE RECORDS SUMMARY | 2017-04-25 04:07 | XMS REPORT | Continuity of Care Document ---
Author Author [facility] Organization [facility] Address Unknown Phone Unavailable Care Team Providers Care Post Splitter Name Role Phone PCP Unavailable Source Comments Some departments are not documenting in the electronic medical record. If you do not see the information that you expected, contact Release of Information in the Health Information Management department at [phone] for further assistance in locating additional records.[facility] Active Allergies and Adverse Reactions Allergen [...] Vaccine 1985 Tetanus Vaccine 1991 Influenza Vaccine 06/16/2017 Results from Last 3 Months Not on file
== END 2017-04-20 19:48 | disposition home or self-care (01) ==
LOC: EDUNIT# 16:28 → ER 16:30
DX: M06.9 Rheumatoid arthritis, unspecified (principal); R10.84 Generalized abdominal pain; R11.2 Nausea with vomiting, unspecified; I10 Essential (primary) hypertension; E11.9 Type 2 diabetes mellitus without complications; M19.90 Unspecified osteoarthritis, unspecified site; M10.9 Gout, unspecified; Z82.49 Family history of ischemic heart disease and other diseases of the circulatory system; Z86.14 Personal history of Methicillin resistant Staphylococcus aureus infection; Z79.4 Long term (current) use of insulin; Z87.891 Personal history of nicotine dependence
CPT/HCPCS: 36415; 71010; 76705; 80053; 81000; 85025; 85652; 86141; 96374; 96375

== ENCOUNTER 2017-07-20 21:53 | Emergency (ER) | payer SELFPAY ==
[~2017-07-20] VITALS: Ht 180.3 cm; Wt 95.3 kg
[~2017-07-20 21:53] MED LIST changes: +IBUP-1780 PO
--- OUTSIDE RECORDS SUMMARY | 2017-07-20 21:58 | XMS REPORT | Clinical Summary ---
Author Author [facility] Organization [facility] Address Unknown Phone Unavailable Care Team Providers Care Telemetry Monitor Name Role Phone PCP Unavailable Source Comments Some departments are not documenting in the electronic medical record. If you do not see the information that you expected, contact Release of Information in the Health Information Management department at [phone] for further assistance in locating additional records.[facility] Allergies Active Allergy Reactions Severity Noted Date Comments Iodinated Contrast- Oral HIVES Medium 08/01/2016 And Iv Dye Current Medications Prescription Sig. Disp. Refills Start [...] food. Active Problems No known active problems Family History Medical History Relation Name Comments Diabetes Father Heart Disease Father Hypertension Father Cancer Maternal Grandfather Heart Disease Mother Hypertension Mother Cancer Paternal Grandfather Relation Name Status Comments Father Alive Maternal Grandfather Mother Alive Paternal Grandfather Sister Alive Social History Tobacco Use Types Packs/Day Years Used Date Never Smoker Smokeless Tobacco: Never Used Alcohol Use Drinks/Week oz/Week Comments No Sex Assigned at Date Recorded Not on file Last Filed Vital Signs Vital Sign Reading Time Taken Blood Pressure 129/83 08/08/2016 8:19 AM CDT Pulse 78 08/08/2016 8:19 AM CDT Temperature 36.9 C (98.4 F) 08/08/2016 8:19 AM CDT Respiratory Rate 20 08/08/2016 8:19 AM CDT Oxygen Saturation - - Inhaled Oxygen - - Concentration Weight 127.2 kg (280 lb 6.4 oz) 08/08/2016 8:19 AM CDT Height 180.3 cm (5' 11") 08/08/2016 8:19 AM CDT Body Mass Index 39.11 08/08/2016 8:19 AM CDT Plan of Treatment Health Maintenance Due Date Last Done Comments PHYSICAL (COMPREHENSIVE) 1981 EXAM PERTUSSIS VACCINE 1985 TETANUS VACCINE 1991 INFLUENZA VACCINE 07/16/2017 Results Not on filefrom Last 3 Months
--- OUTSIDE RECORDS SUMMARY | 2017-07-20 21:59 | XMS REPORT ---
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 Problem Psoriatic arthritis L40.50 Active 861069060 Problem Generalized anxiety disorder F41.1 Active 40709831 Problem Acute pancreatitis, unspecified pancreatitis type K85.9 Active 983404855 Problem Essential hypertension, hypertension with unspecified goal I10 Active 93543339 Problem Arthritis M19.90 Active 2106645 Problem Complete tear of right rotator cuff M75.121 Active 394961481 Problem Anxiety state, unspecified 300.00 Active 877301047 Problem Intestinal infections due to clostridium difficile 008.45 Active 739598001 Problem Pain in joint, forearm 719.43 Active 664454475 Problem Unspecified paroxysmal tachycardia 427.2 Active 42090521 Problem Diverticulitis 562.11 Active 253770454 Problem HTN (hypertension) 401.9 Active 40698492 Problem UTI (urinary tract infection) 599.0 Active 47474650 Problem Rotator cuff disorder 726.10 Active 348098170 Problem DM type 2 (diabetes mellitus, type 2) 250.00 Active 44521813 Problem Type II or unspecified type diabetes mellitus without mention of complication, not stated as uncontrolled E11.9 Active 72933656 ALLERGIES Substance Reaction Event Type Date Status IV Contrast hives Non Drug Allergy Nov, Active SOCIAL HISTORY Never Assessed PLAN OF CARE Activity Details Follow Up 4 Weeks Reason:arthritis VITAL SIGNS Height 71 in 2016-11-23 Weight 276.1 lbs 2016-11-23 Temperature 97.1 degrees Fahrenheit 2016-11-23 Heart Rate 80 bpm 2016-11-23 Respiratory Rate 16 2016-11-23 BMI 38.50 kg/m2 2016-11-23 Blood pressure systolic 152 mmHg 2016-11-23 Blood pressure diastolic 90 mmHg 2016-11-23 MEDICATIONS Medication Instructions Dosage Frequency Start Date End Date Duration Status Humalog 100 UNIT/ML Subcutaneous 3 times a day with meals 23 units Active Lantus 100 UNIT/ML Subcutaneous Once a day 45 units 24h Active Ibuprofen 800 MG Orally Three times a day 1 tablet 8h Active Chlorpheniramine Maleate 4 MG Orally 2 times a day 1 tablet as needed 12h Active Norvasc 10 MG Orally Once a day 1 tablet 24h Active Indomethacin 50 mg Orally Twice a day 1 capsule with food or milk 12h Nov, Active Benazepril HCl 40 mg Orally Once a day 1 tablet 24h Active Atenolol 100 MG Orally Once a day 1 tablet 24h Active Sulfasalazine 500 MG Orally 2 times a day 3 tablet 12h Active RESULTS No Results PROCEDURES No Known procedures IMMUNIZATIONS No Known Immunizations MEDICAL (GENERAL) HISTORY Type Description Date Medical History Pallindromic Rheumatism Medical History Unspecified paroxysmal tachycardia Medical History Diabetes mellitus without mention of complication, type II or unspecified type, not stated as uncontrolled Medical History Anxiety state, unspecified Medical History Drug abuse obtaining Narcotics from 4 different providers in [place] and [place] Medical History HX of MRSA Medical History hx of C Diff w/ prolonged hospitalization Medical History Hypertension Medical History Hyperlipidemia Medical History Obesity Medical History gout 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 Mckee normal Coronaries 2012 Surgical History Laminectomy Surgical History Cystoscopy in [place] Surgical History Loop recorder-implanted by Dr. Escobedo-pt would not upload his device 2012 Hospitalization History [facility] on/off x's 3 weeks Staph in blood MARCH and April 2015 Hospitalization History C. Diff, sepsis 2013 Hospitalization History due to staph infection ([facility]) to right [place] ([facility]) Dr. [place] 08/30 Hospitalization History [facility] N/V and dehydration 12/2015 Hospitalization History Pancreatitis, Intractable N/V/D, Hypokalemia 02/05/16 Hospitalization History INES and dehydration with "Syncope" [facility] Hospitalization History Recurrent ER visits with previous cardiology work up for uncontrolled HTN, chest pain and tachycardia Hospitalization History Right Humeral FX Hospitalization History low potassium at [facility] [place]
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
--- NOTE | 2017-07-20 22:11 | ED GU-Male ---
General Stated Complaint: ABD PAIN Source: patient Exam Limitations: no limitations History of Present Illness Time seen by provider: 22:01 Initial Comments Patient has ER by private conveyance with chief complaint of right lower quadrant abdominal pain that radiates from the back right flank reminiscent of a kidney stone he had about 5 years ago. He taken some Zofran for the nausea that he had left over about 1800 hrs. and has helped quite a bit. He is not taking anything for pain right now. He is having a significant amount of abdominal pain and says he's had to change his underwear several times because of incontinence with bloody tinged urine. He's had no fevers, chills, vomiting, diarrhea, shortness of breath, cough, headache. He's had an appendectomy years ago. Allergies and Home Medications Allergies Coded Allergies: Iodinated Contrast- Oral and IV Dye (Unverified Allergy, Unknown, 05/12/14) Home Medications Amlodipine Besylate 10 Mg Tablet, 10 MG PO HS, (Reported) LAST FILLED 12/26/15 #30 Atenolol 100 Mg Tablet, 100 MG PO BID, (Reported) LAST FILLED 12/24/15 #60 Benazepril HCl 40 Mg Tab, 40 MG PO HS, (Reported) LAST FILLED 12/24/15 #30 Hydrocodone/Acetaminophen 1 Each Tablet, 1 EACH PO Q6H PRN for PAIN, #20 Ref 0 Prescribed by: JADEN RIVERA on 04/20/171944 Ibuprofen 800 Mg Tablet, 800 MG PO Q8H PRN for PAIN, (Reported) Insulin Glargine,Hum.rec.anlog 100 Unit/1 Ml Vial, Unknown Dose SQ, (Reported) Insulin Lispro 100 Unit/1 Ml Vial, Unknown Dose SQ, (Reported) Prednisone 20 Mg Tab, 40 MG PO BID for 14 Days, #42 Ref 0 Take 2 tabs (40mg) twice daily for 7 days then 1 tablet (20mg) twice daily for 1 week. Prescribed by: JADEN RIVERA on 04/20/171944 Sulfasalazine 500 Mg Tablet, Unknown Dose PO, (Reported) Constitutional: No chills, No diaphoresis, No fever EENTM: No ear pain, No blurred vision Respiratory: No cough, No dyspnea on exertion Cardiovascular: No chest pain, No palpitations Gastrointestinal: RLQ, abdominal pain, No constipation, No diarrhea, nausea, No vomiting Genitourinary: see HPI, burning, denies discharge, dysuria, flank pain, hematuria (right) Musculoskeletal: see HPI, back pain Skin: No pruritus, No rash Psychiatric/Neurological: Denies Headache, Denies Numbness, Denies Paresthesia Past Wnwjjrl-Vzpxys-Exdgzl Hx Patient Social History Alcohol Use: Denies Use Recreational Drug Use: No Smoking Status: Never a Smoker 2nd Hand Smoke Exposure: No Recent Foreign Travel: No Contact w/Someone Who Travel: No Recent Hopitalizations: No Immunizations Up To Date Tetanus Booster (TDap): Unknown Date of Pneumonia Vaccine: Jul 16, 2015 Date of Influenza Vaccine: Jul 16, 2016 Seasonal Allergies Seasonal Allergies: No Surgeries History of Surgeries: Yes Surgeries: Bladder Surgery, Cardiac, Orthopedic Respiratory History of Respiratory Disorde: No Cardiovascular History of Cardiac Disorders: Yes Cardiac Disorders: Hypertension, Irregular Heartbeat, Syncope Neurological History of Neurological Disord: No Reproductive System Hx Reproductive Disorders: No Sexually Transmitted Disease: No HIV/AIDS: No Genitourinary Genitourinary Disorders: Kidney Stones Gastrointestinal History of Gastrointestinal Di: Yes (ELEVATED LIVER ENZYMES AND FATTY LIVER DISEASE) Gastrointestinal Disorders: Liver Disease/Jaundice, Pancreatitis, C-Diff Musculoskeletal History of Musculoskeletal Dis: Yes Musculoskeletal Disorders: Arthritis, Fractures, Gout Endocrine History of Endocrine Disorders: Yes Endocrine Disorders: Diabetes, Insulin dep HEENT Loss of Vision: Denies Hearing Impairment: Denies Cancer History of Cancer: No Psychosocial History of Psychiatric Problem: No Integumentary History of Skin or Integumenta: Yes (hx MRSA OF A WOUND) Blood Transfusions History of Blood Disorders: No Adverse Reaction to a Blood Tr: No Family Medical History Family Medial History: Family history: Diabetes mellitus 19 FATHER Family history: Hypertension 19 FATHER Hypercholesterolemia 19 FATHER Myocardial infarction 19 MOTHER No Family History of: Cancer Cancer of colon Dementia Family history: Alzheimer's disease Family history: Asthma History of - respiratory disease Seizure disorder Stroke Physical Exam Vital Signs Vital Sign - Last 12Hours 07/20/17 21:58 Temp 98.6 Pulse 113 Resp 20 B/P (MAP) 146/116 Pulse Ox 99 O2 Delivery Room Air Capillary Refill : General Appearance: WD/WN, moderate distress HEENT: PERRL/EOMI, pharynx normal Neck: non-tender, normal inspection Cardiovascular: normal peripheral pulses, regular rate, rhythm Respiratory: lungs clear, normal breath sounds Gastrointestinal: normal bowel sounds, soft, tenderness (right lower quadrant and right flank.) Back: normal inspection, CVA tenderness (R) Neurologic/Psychiatric: alert, oriented x 3 Skin: normal color, warm/dry Progress/Results/Core Measures Results/Orders Lab Results Laboratory Tests Test 07/20/17 21:57 07/20/17 22:15 Range/Units Urine Color RED H Urine Clarity SLIGHTLY CLOUDY Urine pH 6.5 5-9 Urine Specific [place] 1.010 L 1.016-1.022 Urine Protein 3+ H NEGATIVE Urine Glucose (UA) NEGATIVE NEGATIVE Urine Ketones NEGATIVE NEGATIVE Urine Nitrite NEGATIVE NEGATIVE Urine Bilirubin NEGATIVE NEGATIVE Urine Urobilinogen NORMAL NORMAL MG/DL Urine Leukocyte Esterase 1+ H NEGATIVE Urine RBC (Auto) 5+ H NEGATIVE Urine RBC >100 H /HPF Urine WBC 0-2 /HPF Urine Squamous Epithelial Cells 2-5 /HPF Urine Crystals NONE /LPF Urine Bacteria NONE /HPF Urine Casts NONE /LPF Urine Mucus NEGATIVE /LPF Urine Culture Indicated NO White Blood Count 7.8 4.3-11.0 10^3/uL Red Blood Count 4.11 L 4.35-5.85 10^6/uL Hemoglobin 12.4 L 13.3-17.7 G/DL Hematocrit 34 L 40-54 % Mean Corpuscular Volume 83 80-99 FL Mean Corpuscular Hemoglobin 30 25-34 PG Mean Corpuscular Hemoglobin Concent 36 32-36 G/DL Red Cell Distribution Width 13.5 10.0-14.5 % Platelet Count 341 130-400 10^3/uL Mean Platelet Volume 8.2 7.4-10.4 FL Neutrophils (%) (Auto) 56 42-75 % Lymphocytes (%) (Auto) 30 12-44 % Monocytes (%) (Auto) 9 0-12 % Eosinophils (%) (Auto) 5 0-10 % Basophils (%) (Auto) 1 0-10 % Neutrophils # (Auto) 4.4 1.8-7.8 X 10^3 Lymphocytes # (Auto) 2.3 1.0-4.0 X 10^3 Monocytes # (Auto) 0.7 0.0-1.0 X 10^3 Eosinophils # (Auto) 0.4 H 0.0-0.3 10^3/uL Basophils # (Auto) 0.0 0.0-0.1 10^3/uL Sodium Level 140 135-145 MMOL/L Potassium Level 2.9 L 3.6-5.0 MMOL/L Chloride Level 105 98-107 MMOL/L Carbon Dioxide Level 24 21-32 MMOL/L Anion Gap 11 5-14 MMOL/L Blood Urea Nitrogen 12 7-18 MG/DL Creatinine 1.15 0.60-1.30 MG/DL Estimat Glomerular Filtration Rate > 60 BUN/Creatinine Ratio 10 Glucose Level 143 H 70-105 MG/DL Calcium Level 9.7 8.5-10.1 MG/DL Magnesium Level 2.0 1.8-2.4 MG/DL Total Bilirubin 0.4 0.1-1.0 MG/DL Aspartate Amino Transf (AST/SGOT) 24 5-34 U/L Alanine Aminotransferase (ALT/SGPT) 15 0-55 U/L Alkaline Phosphatase 102 40-136 U/L Total Protein 7.9 6.4-8.2 GM/DL Albumin 4.2 3.2-4.5 GM/DL My Orders Orders - JADEN RIVERA Ct Abd/Pelvis Wo(Kidney Stone) (07/20/17 22:05) Abdomen/Kub 1view (07/20/17 22:05) Ua Culture If Indicated (07/20/17 22:05) Cbc With Automated Diff (07/20/17 22:11) Comprehensive Metabolic Panel (07/20/17 22:11) Saline Lock/Iv-Start (07/20/17 22:11) Ns Iv 1000 Ml (Sodium Chloride 0.9%) (07/20/17 22:11) Ketorolac Injection (Toradol Injection) (07/20/17 22:45) Ketorolac Injection (Toradol Injection) (07/20/17 22:26) Ondansetron Injection (Zofran Injectio (07/20/17 22:28) Ondansetron Injection (Zofran Injectio (07/20/17 22:45) Fentanyl Injection (Sublimaze Injection (07/20/17 23:00) Potassium Cl 10meq/50ml Ivpb (Kcl 10 Meq (07/20/17 23:00) Magnesium (07/20/17 22:53) Medications Given in ED Current Medications Medications Dose Ordered Sig/Obie Route Start Time Stop Time Status Last Admin Dose Admin Ketorolac Tromethamine 15 mg ONCE ONCE IVP 07/20/17 22:45 07/20/17 22:46 DC 07/20/17 22:40 15 MG Ondansetron HCl 4 mg ONCE ONCE IVP 07/20/17 22:45 07/20/17 22:46 DC 07/20/17 22:39 4 MG Sodium Chloride 1,000 ml @ 0 mls/hr Q0M ONCE IV 07/20/17 22:11 07/20/17 22:13 DC 07/20/17 22:38 1,000 MLS/HR Vital Signs/I&O Vital Sign - Last 12Hours 07/20/17 21:58 Temp 98.6 Pulse 113 Resp 20 B/P (MAP) 146/116 Pulse Ox 99 O2 Delivery Room Air Diagnostic Imaging Diagonstic Imaging: CT Plain Films/CT/US/NM/MRI: abdomen, pelvis (without contrast; kidney stone study) Comments Nonobstructive renal calcifications may represent stones. No ureteral calculus. No hydronephrosis. Diverticulosis without diverticulitis. No evidence for acute pancreatitis, bowel obstruction or other acute process. Incidentally there is a left lower lobe calcified granuloma. Suspected appendiceal stump. Mild loss of multiple thoracic vertebral bodies which appears chronic, possibly congenital. Degenerative changes osseous structures, findings suggestive of thoracic dish and other nonemergent incidental findings. Reviewed: Reviewed by Me Diagonstic Imaging: Xray Plain Films/CT/US/NM/MRI: abdomen (KUB 1 view) Comments No acute abnormalities, plain KUB. Reviewed: Reviewed by Me Departure Impression Impression: Primary Impression: Abdominal wall pain in right flank Disposition: HOME, SELF-CARE Condition: Stable Departure-Patient Inst. Decision time for Depature: 23:16 Referrals: JONI DENTON MD (PCP/Family) Primary Care Physician Patient Instructions: Kidney Stones (DC) Add. Discharge Instructions: While I don't see a kidney stone in your urinary tract is causing any problems now it's likely due to just passed it. Drink lots of fluids to flush it out and you should expect some resolution of symptoms in the next 1-2 days. We'll send you home some pain medicines and a prescription for etodolac pain medicine to be taken every 6 hours as needed. If you're having nausea you can use the Zofran you have on hand. We will put you on Bactrim for 5 days to be taken twice a day with a meal to prevent urinary tract infection. If you're not improved in a couple days he should follow up with your primary care physician or you may follow-up with urology, Dr. Leon at [phone]. Scripts Ketorolac Tromethamine (Ketorolac Tromethamine) 10 Mg Tablet 10 MG PO Q6H Y for BREAKTHROUGH PAIN, #14 TAB 0 Refills Prov: JADEN RIVERA 07/20/17 Sulfamethoxazole/Trimethoprim (Bactrim Ds Tablet) 1 Each Tablet 1 EACH PO BID WITH MEALS for 5 Days, #10 TAB 0 Refills Prov: JADEN RIVERA 07/20/17 Work/School Note: Work Release Form Date Seen in the Emergency Department: Jul 20, 2017 Return to Work: Jul 21, 2017 Restrictions: No Restrictions Copy Copies To 1: JONI DENTON MD, TITUS J Jul 20, 2017 22:11
[2017-07-20 22:15] LABS: BILIRUBIN,URINE NEGATIVE (NEGATIVE); KETONES,URINE NEGATIVE (NEGATIVE); LEUKOCYTE ESTERASE ,URINE 1+ (NEGATIVE); NITRITE,URINE NEGATIVE (NEGATIVE); PH,URINE 6.5 (5-9); PROTEIN,URINE 3+ (NEGATIVE); UROBILINOGEN,URINE NORMAL (NORMAL)
[2017-07-20 22:23] LABS: BASOPHILS % (AUTO) 1 % (0-10); EOSINOPHILS # (AUTO) 0.4 10^3/uL (0.0-0.3); EOSINOPHILS % (AUTO) 5 % (0-10); LYMPHOCYTES # (AUTO) 2.3 X 10^3 (1.0-4.0); LYMPHOCYTES % (AUTO) 30 % (12-44); MEAN CORPUSCULAR HEMOGLOBIN 30 PG (25-34); MEAN CORPUSCULAR HGB CONC 36 G/DL (32-36); MEAN CORPUSCULAR VOLUME 83 FL (80-99); MEAN PLATELET VOLUME 8.2 FL (7.4-10.4); MONOCYTES # (AUTO) 0.7 X 10^3 (0.0-1.0); MONOCYTES % (AUTO) 9 % (0-12); NEUTROPHILS # (AUTO) 4.4 X 10^3 (1.8-7.8); NEUTROPHILS % (AUTO) 56 % (42-75); PLATELET COUNT 341 10^3/uL (130-400); RED BLOOD COUNT 4.11 10^6/uL (4.35-5.85); RED CELL DISTRIBUTION WIDTH 13.5 % (10.0-14.5); WHITE BLOOD COUNT 7.8 10^3/uL (4.3-11.0)
[2017-07-20] MEDS ORDERED: ONDANSETRON 4 MG/2 ML (SDV) Z0FRAN ONE (22:28)
[2017-07-20 22:31] LABS: WBC,URINE 0-2 /HPF
[2017-07-20] MEDS: NS IV 1000 ML 1,000 ML IV ONE (22:38)
[2017-07-20] MEDS: ONDANSETRON 4 MG/2 ML (SDV) Z0FRAN IVP ONE (22:39)
[2017-07-20] MEDS: KETOROLAC 30 MG/ML VIAL ONE (22:40)
[2017-07-20] MEDS: KETOROLAC 30 MG/ML VIAL IVP ONE (22:40)
[2017-07-20 22:45] LABS: ALANINE AMINOTRANSFERASE 15 U/L (0-55); ALBUMIN 4.2 GM/DL (3.2-4.5); ANION GAP 11 MMOL/L (5-14); ASPARTATE AMINO TRANSFERASE 24 U/L (5-34); BILIRUBIN,TOTAL 0.4 MG/DL (0.1-1.0); BLOOD UREA NITROGEN 12 MG/DL (7-18); BUN/CREATININE RATIO 10; CALCIUM 9.7 MG/DL (8.5-10.1); CARBON DIOXIDE 24 MMOL/L (21-32); CHLORIDE 105 MMOL/L (98-107); CREATININE SERUM 1.15 MG/DL (0.60-1.30); GFR ESTIMATED > 60; GLUCOSE 143 MG/DL (70-105); POTASSIUM 2.9 MMOL/L (3.6-5.0); SODIUM 140 MMOL/L (135-145); TOTAL PROTEIN 7.9 GM/DL (6.4-8.2)
[2017-07-20] MEDS ORDERED: POTASSIUM CL 10MEQ/50ML IVPB 50 ML IV ONE (23:00)
[2017-07-20] MEDS ORDERED: SULF1TAB35 PO (23:19)
[2017-07-20] MEDS ORDERED: KETO10TA PO (23:19)
[2017-07-20] MEDS: fentaNYL INJECTION 100 MCG/2 ML AMP IVP ONE (23:25)
[2017-07-20] MEDS: KCL 20 MEQ TAB (K-DUR) PO ONE (23:44)
[2017-07-21 00:21] VITALS: BP 158/98
[2017-07-21] MEDS: RX-HYDROCODONE/APAP 5/325 MG #4 TAB PK PO PRN (00:21)
--- NOTE | 2017-07-21 07:10 | Diagnostic Imaging Report ---
INDICATION: Abdominal pain. TECHNIQUE: 2 supine view of the abdomen 10:41 PM CORRELATION STUDY: None FINDINGS: Moderate severity fecal retention. No abnormally dilated loops of bowel or findings to suggest a high degree obstruction. No definitive pathologic intraabdominal calcifications. Note is made of multiple compressed lower thoracic vertebral bodies. IMPRESSION: 1. Mild to moderate severity fecal retention. No significant degree of bowel obstruction. Dictated by: Dictated on workstation # [id number]
--- NOTE | 2017-07-21 07:49 | Diagnostic Imaging Report ---
PROCEDURE: CT urinary tract, rule out kidney stone. TECHNIQUE: Multiple contiguous axial images were obtained through the abdomen and pelvis without the use of intravenous contrast. INDICATION: Abdominal pain CORRELATION STUDY: 02/04/2016 FINDINGS: LOWER THORAX: Tiny 2 mm subpleural nodule right lower lobe. Left lower lobe granuloma. LIVER: Unremarkable. GALLBLADDER: Present and unremarkable. No bile duct dilatation. SPLEEN: Unremarkable. PANCREAS: Unremarkable. ADRENAL GLANDS: Unremarkable. KIDNEYS: A few punctate calcifications are present suspect for nonobstructing calcifications. No obstructive uropathy. ABDOMINAL AORTA: Unremarkable, nonaneurysmal. GASTROINTESTINAL TRACT: No obstruction or inflammation. Apparent prior appendectomy. Mild severity fecal retention. A few diverticula without evidence for acute diverticulitis. No abdominal ascites or free air. URINARY BLADDER: Decompressed and therefore not well evaluated. REPRODUCTIVE: Prostate gland appearing unremarkable. OSSEOUS STRUCTURES: Degenerative changes of the osseous structures may reflect underlying thoracic cage. Multiple thoracic vertebral body heights are present appear to be chronic or perhaps congenital. IMPRESSION: 1. Negative for acute abnormality of the abdomen or pelvis. 2. Multiple small stones without evidence for obstructive uropathy. 3. Likely prior appendectomy. Dictated by: Dictated on workstation # [id number]
== END 2017-07-21 00:21 | disposition home or self-care (01) ==
LOC: EDUNIT# 21:53 → ER 21:55
DX: R10.31 Right lower quadrant pain (principal); I10 Essential (primary) hypertension; M19.90 Unspecified osteoarthritis, unspecified site; M10.9 Gout, unspecified; Z82.49 Family history of ischemic heart disease and other diseases of the circulatory system; Z86.14 Personal history of Methicillin resistant Staphylococcus aureus infection; Z87.19 Personal history of other diseases of the digestive system; Z87.442 Personal history of urinary calculi; Z79.4 Long term (current) use of insulin
CPT/HCPCS: 36415; 74000; 74176; 80053; 81000; 83735; 85025